=== PATIENT | female | born 1985 | race Caucasian/White ===

== ENCOUNTER 2016-10-03 09:35 | Emergency (ER) | payer OTHER ==
--- NOTE | 2016-10-03 09:53 | Emergency Department Record ---
History of Present Illness - General Chief complaint: ENT Stated complaint: SORE THROAT Time Seen by Provider: 10/03/16 09:43 Source: Patient Mode of Arrival: Ambulatory - History of Present Illness Initial comments: sore throat and body aches and a work associate also sick and she has bilateral ear pain. complaint: Sore throat Onset/Timin -: Days(s) Location: Throat Severity: Moderate Severity scale (1-10): 8 Quality: Sharp Consistency: Constant Improves with: None Worsens with: Swallowing Associated Symptoms: Pain with swallowing, Sore throat - Related Data Home Medications Medication Instructions Recorded Confirmed Last Taken Estradiol [Estradiol] 1 patch TOP DAILY 10/03/16 10/03/16 Unknown Lansoprazole [Prevacid] 30 mg PO DAILY 10/03/16 10/03/16 Unknown Lubiprostone [Amitiza] 24 mcg PO DAILY 10/03/16 10/03/16 Unknown Allergies Allergy/AdvReac Type Severity Reaction Status Date / Time ciprofloxacin [From Cipro] Allergy ANAPHYLAXIS Verified 07/22/15 12:51 ciprofloxacin HCl Allergy ANAPHYLAXIS Verified 07/22/15 12:51 [From Cipro] estradiol [From Estrace] Allergy ANAPHYLAXIS Verified 07/22/15 12:51 estrogens, conjugated Allergy ANAPHYLAXIS Verified 10/02/15 10:54 [From Premarin] Sulfa (Sulfonamide Allergy ANAPHYLAXIS Verified 10/02/15 10:55 Antibiotics) sulfamethoxazole Allergy ANAPHYLAXIS Verified 07/22/15 12:51 [From Bactrim] trimethoprim [From Bactrim] Allergy ANAPHYLAXIS Verified 07/22/15 12:51 Travel Screening - Travel/Exposure Within Last 30 Days Have you traveled within the last 30 days?: No Review of Systems Reviewed: No additional complaints except as noted below Constitutional: Reports: As per HPI. Denies: Chills, Fever, Malaise, Night sweats, Weakness, Weight change Eyes: Reports: As per HPI. Denies: Eye discharge, Eye pain, Photophobia, Vision change ENT: Reports: As per HPI, Throat pain. Denies: Congestion, Dental pain, Ear pain, Epistaxis, Hearing loss Respiratory: Reports: As per HPI. Denies: Cough, Dyspnea, Hemoptysis, Stridor, Wheezes Cardiovascular: Reports: As per HPI. Denies: Arrhythmia, Chest pain, Dyspnea on exertion, Edema, Murmurs, Orthopnea, Palpitations, Paroxysmal nocturnal dyspnea, Rheumatic Fever, Syncope Endocrine: Reports: As per HPI. Denies: Fatigue, Heat or cold intolerance, Polydipsia, Polyuria Gastrointestinal: Reports: As per HPI. Denies: Abdominal pain, Constipation, Diarrhea, Hematemesis, Hematochezia, Melena, Nausea, Vomiting Genitourinary: Reports: As per HPI. Denies: Abnormal menses, Discharge, Dyspareunia, Dysuria, Frequency, Hematuria, Incontinence, Retention, Urgency Musculoskeletal: Reports: As per HPI. Denies: Arthralgia, Back pain, Gout, Joint swelling, Myalgia, Neck pain Skin: Reports: As per HPI. Denies: Bruising, Change in color, Change in hair/ nails, Lesions, Pruritus, Rash Neurological: Reports: As per HPI. Denies: Abnormal gait, Confusion, Headache, Numbness, Paresthesias, Seizure, Tingling, Tremors, Vertigo, Weakness Psychiatric: Reports: As per HPI. Denies: Anxiety, Auditory hallucinations, Depression, Homicidal thoughts, Suicidal thoughts, Visual hallucinations Hematological/Lymphatic: Reports: As per HPI. 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: other (Hx of FELIPE.) - RESPIRATORY Hx Respiratory Disorders: Yes Hx Bronchitis: Yes Hx Pneumonia: Yes - CARDIOVASCULAR Hx Cardio Disorders: No - NEURO Hx Neuro Disorders: Yes Hx Headaches: Yes - GI Hx GI Disorders: No - Hx Genitourinary Disorders: Yes Hx Bladder Problem: Yes Hx UTI: Yes Comment:: endometriosis - ENDOCRINE Hx Endocrine Disorders: No Hx Diabetes: No Hx Thyroid Disease: No - MUSCULOSKELETAL Hx Musculoskeletal Disorders: No - PSYCH Hx Psych Problems: Yes Hx Anxiety: Yes Hx Depression: Yes - HEMATOLOGY/ONCOLOGY Hx Hematology/Oncology Disorders: No Family Medical History Any Significant Family History?: Yes Hx Cancer: Brother/Sister *Cancer Comment: Aunt Hx Depression: Brother/Sister Hx Diabetes: Grandparents Hx Heart Disease: Grandparents Physical Exam - General General Appearance: Alert, Oriented x3, Cooperative, No acute distress - Head Head exam: Normal inspection - Eye Eye exam: Normal appearance, PERRL Pupils: Normal accommodation - ENT ENT exam: Mucous membranes moist, Normal external ear exam, TM's normal bilaterally Ear exam: Normal external inspection. negative: External canal tenderness Nasal Exam: Normal inspection. negative: Discharge, Sinus tenderness Mouth exam: Normal external inspection, Tongue normal Teeth exam: Normal inspection. negative: Dental caries Throat exam: Normal inspection, Tonsillar erythema. negative: Tonsillar exudate - Neck Neck exam: Normal inspection, Full ROM. negative: Tenderness - Respiratory Respiratory exam: Normal lung sounds bilaterally. negative: Respiratory distress - Cardiovascular Cardiovascular Exam: Regular rate, Normal rhythm, Normal heart sounds - GI/Abdominal GI/Abdominal exam: Soft, Normal bowel sounds. negative: Tenderness - Rectal Rectal exam: Deferred - exam: Deferred - Extremities Extremities exam: Normal inspection, Full ROM, Normal capillary refill. negative: Tenderness - Back Back exam: Reports: Normal inspection, Full ROM. Denies: Muscle spasm, Rash noted, Tenderness - Neurological Neurological exam: Alert, Normal gait, Oriented X3, Reflexes normal - Psychiatric Psychiatric exam: Normal affect, Normal mood - Skin Skin exam: Dry, Intact, Normal color, Warm Course Vital Signs 10/03/16 09:38 Temperature 98.5 F Pulse Rate 111 H Respiratory 20 Rate Blood Pressure 130/79 Pulse Ox 98 Medical Decision Making - Data Complexity MDM Data: Labs Ordered and/or Reviewed Disposition Clinical Impression: Pharyngitis Disposition: Home, Self-Care Condition: (1) Good Instructions: Pharyngitis (ED) Additional Instructions: follow up with family in 2 days Forms: Patient Portal Access Time of Disposition: 10:07
== END 2016-10-03 10:23 | disposition home or self-care (01) ==
LOC: ER 09:35
DX: J02.9 Acute pharyngitis, unspecified (principal)
CPT/HCPCS: 87880; 99282

== ENCOUNTER 2017-04-28 05:16 | Emergency (ER) | payer OTHER ==
[2017-04-28] MEDS ORDERED: ASPIRIN 81 MG CHEWABLE TABLET PO ONE ×3 (05:24→05:42)
--- NOTE | 2017-04-28 05:32 | Emergency Department Record ---
History of Present Illness - General Chief Complaint: Chest Pain Stated Complaint: CHEST PAIN Time Seen by Provider: 04/28/17 05:24 Source: Patient - History of Present Illness Initial Comments: The patient states that she developed anterior chest heaviness about 2 hours ago 8/10 severity with radiation through to left should blade and down left arm to her fingers. It was associated with nausea, NO vomiting, some SOB, and palpitations. It is pleuritic in nature worsening with a deep breath. She took Zantac because she has acid reflux, and she also took ibuprofen earlier. She denies DM, htn, Chol elevation, smoking, or FH of heart problems at a young age. She denies PE, DVT, HI, CVA history. She was seen for a similar situation in September of 2015 and had a cardiac workup including CTA which was normal. She had a total hysterectomy at age 25 due to endometriosis. She also has a history of IBS; she had 1 week of intermittent diffuse abdominal pain which was present yesterday but currently is absent. - Related Data Allergies Allergy/AdvReac Type Severity Reaction Status Date / Time ciprofloxacin [From Cipro] Allergy ANAPHYLAXIS Verified 07/22/15 12:51 ciprofloxacin HCl Allergy ANAPHYLAXIS Verified 07/22/15 12:51 [From Cipro] estradiol [From Estrace] Allergy ANAPHYLAXIS Verified 07/22/15 12:51 estrogens, conjugated Allergy ANAPHYLAXIS Verified 10/02/15 10:54 [From Premarin] Sulfa (Sulfonamide Allergy ANAPHYLAXIS Verified 10/02/15 10:55 Antibiotics) sulfamethoxazole Allergy ANAPHYLAXIS Verified 07/22/15 12:51 [From Bactrim] trimethoprim [From Bactrim] Allergy ANAPHYLAXIS Verified 07/22/15 12:51 Review of Systems Reviewed: No additional complaints except as noted below Constitutional: Reports: As per HPI. Denies: Chills, Fever, Malaise, Night sweats, Weakness, Weight change Eyes: Reports: As per HPI. Denies: Eye discharge, Eye pain, Photophobia, Vision change ENT: Reports: As per HPI. Denies: Congestion, Dental pain, Ear pain, Epistaxis , Hearing loss, Throat pain Respiratory: Reports: As per HPI. Denies: Cough, Dyspnea, Hemoptysis, Stridor, Wheezes Cardiovascular: Reports: As per HPI. Denies: Arrhythmia, Chest pain, Dyspnea on exertion, Edema, Murmurs, Orthopnea, Palpitations, Paroxysmal nocturnal dyspnea, Rheumatic Fever, Syncope Endocrine: Reports: As per HPI. Denies: Fatigue, Heat or cold intolerance, Polydipsia, Polyuria Gastrointestinal: Reports: As per HPI. Denies: Abdominal pain, Constipation, Diarrhea, Hematemesis, Hematochezia, Melena, Nausea, Vomiting Genitourinary: Reports: As per HPI. Denies: Abnormal menses, Discharge, Dyspareunia, Dysuria, Frequency, Hematuria, Incontinence, Retention, Urgency Musculoskeletal: Reports: As per HPI. Denies: Arthralgia, Back pain, Gout, Joint swelling, Myalgia, Neck pain Skin: Reports: As per HPI. Denies: Bruising, Change in color, Change in hair/ nails, Lesions, Pruritus, Rash Neurological: Reports: As per HPI. Denies: Abnormal gait, Confusion, Headache, Numbness, Paresthesias, Seizure, Tingling, Tremors, Vertigo, Weakness Psychiatric: Reports: As per HPI. Denies: Anxiety, Auditory hallucinations, Depression, Homicidal thoughts, Suicidal thoughts, Visual hallucinations Hematological/Lymphatic: Reports: As per HPI. 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: other (Hx of FELIPE.) - RESPIRATORY Hx Respiratory Disorders: Yes Hx Bronchitis: Yes Hx Pneumonia: Yes - CARDIOVASCULAR Hx Cardio Disorders: No - NEURO Hx Neuro Disorders: Yes Hx Headaches: Yes - GI Hx GI Disorders: No - Hx Genitourinary Disorders: Yes Hx Bladder Problem: Yes Hx UTI: Yes Comment:: endometriosis - ENDOCRINE Hx Endocrine Disorders: No Hx Diabetes: No Hx Thyroid Disease: No - MUSCULOSKELETAL Hx Musculoskeletal Disorders: No - PSYCH Hx Psych Problems: Yes Hx Anxiety: Yes Hx Depression: Yes - HEMATOLOGY/ONCOLOGY Hx Hematology/Oncology Disorders: No Family Medical History Hx Cancer: Brother/Sister *Cancer Comment: Aunt Hx Depression: Brother/Sister Hx Diabetes: Grandparents Hx Heart Disease: Grandparents Physical Exam - General General Appearance: Alert, Oriented x3, Cooperative, Mild distress, Anxious ( facial grimacing when speaking of her numerous symptoms) - Head Head exam: Normal inspection - Eye Eye exam: Normal appearance, PERRL Pupils: Normal accommodation - ENT ENT exam: Normal exam, Mucous membranes moist, Normal external ear exam, Normal orophraynx, TM's normal bilaterally Ear exam: Normal external inspection. negative: External canal tenderness Nasal Exam: Normal inspection. negative: Discharge, Sinus tenderness Mouth exam: Normal external inspection, Tongue normal Teeth exam: Normal inspection. negative: Dental caries Throat exam: Normal inspection. negative: Tonsillar erythema, Tonsillar exudate - Neck Neck exam: Normal inspection, Full ROM. negative: Lymphadenopathy, Tenderness - Respiratory Respiratory exam: Normal lung sounds bilaterally. negative: Accessory muscle use, Chest wall tenderness, Respiratory distress - Cardiovascular Cardiovascular Exam: Regular rate, Normal rhythm, Normal heart sounds - GI/Abdominal GI/Abdominal exam: Soft, Normal bowel sounds. negative: Tenderness - Rectal Rectal exam: Deferred - exam: Deferred - Extremities Extremities exam: Normal inspection, Full ROM, Normal capillary refill. negative: Calf tenderness, Pedal edema, Tenderness - Back Back exam: Reports: Normal inspection, Full ROM. Denies: CVA tenderness (R), CVA tenderness (L), Muscle spasm, Rash noted, Tenderness - Neurological Neurological exam: Alert, Normal gait, Oriented X3, Reflexes normal - Psychiatric Psychiatric exam: Anxious, Normal affect, Normal mood - Skin Skin exam: Dry, Intact, Normal color, Warm Course - Reevaluation(s) Reevaluation #1: No improvement with ativan. Still hurts on left side of chest especially with breathing. She states that it feels beneath her left breast but above her ribs. Patient is aware that she is to have her troponin repeated with results to Dr. Alberto on the day shift. She is resting comfortably. Much more relaxed. Care turned over to Dr. Alberto at 7 a.m. due to shift change. 04/28/17 06:06 04/28/17 06:42 Medical Decision Making - Data Complexity MDM Data: Labs Ordered and/or Reviewed, EKG Ordered and/or Reviewed - Lab Data Result diagrams: 04/28/17 05:20 04/28/17 05:20 - EKG Data -: EKG Interpreted by Me EKG: No Acute Changes, Unchanged From Previous (no change from 5-8-16.) Disposition Clinical Impression: Left sided chest pain Condition: (2) Stable Forms: Patient Portal Access Quality - Quality Measures Quality Measures: N/A - Blood Pressure Screening Does Patient Have Any of the Following: No Blood Pressure Classification: Hypertensive Reading Systolic Measurement: 145 Diastolic Measurement: 97 Screening for High Blood Pressure: < Normal BP, F/U Not Required > [G1230]
[2017-04-28 05:34] LABS: HEMATOCRIT 40.3 % (35.0-47.0); HEMOGLOBIN 13.8 gm/dl (11.6-16.0); MEAN CELL VOLUME 87.6 fl (81-97); MEAN CORPUSCULAR HGB CONC 34.2 g/dl (32-36); MEAN PLATELET VOLUME 10.1 fl (7.4-10.4); PLATELET COUNT 290 K/uL (130-400); RED CELL DISTRIBUTION WIDTH 12.3 % (11.5-14.5); WHITE BLOOD COUNT W/O DIFF 7.4 K/uL (4.2-12.2)
[2017-04-28] MEDS ORDERED: LORAZEPAM 2 MG/ML VIAL IV ONE (05:41)
[2017-04-28 05:42] LABS: BLOOD UREA NITROGEN 23 mg/dL (6-20); CREATININE 0.7 mg/dL (0.5-0.9); EST GLOMERULAR FILTRATION RATE > 60 mL/min
[2017-04-28 05:45] LABS: GLUCOSE,RANDOM 103 mg/dL (74-109)
[2017-04-28 05:49] LABS: PARTIAL THROMBOPLASTIN TIME 26.4 SECONDS (24.5-39.1)
[2017-04-28 05:58] LABS: THYROID STIMULATING HORMONE 4.35 uIU/mL (0.270-4.20)
[2017-04-28] MEDS ORDERED: KETOROLAC 30 MG/ML VIAL IVP ONE (06:06)
[2017-04-28] MEDS ORDERED: ORPHENADRINE CITRATE 60MG/2ML VIAL IVP ONE (06:07)
[2017-04-28] MEDS ORDERED: MORPHINE SULFATE 5 MG/ML PFS IVP ONE (07:09)
--- NOTE | 2017-04-28 07:10 | Emergency Department Record ---
History of Present Illness - General Chief Complaint: Chest Pain Stated Complaint: CHEST PAIN Time Seen by Provider: 04/28/17 05:24 Source: Patient Mode of Arrival: Wheelchair - History of Present Illness Onset/Timin -: Hour(s) Onset: During rest Pain Location: Left chest Pain Radiation: LUE, Back Severity scale (1-10): 8 Quality: Sharp Consistency: Constant Improves With: Nothing Worsens With: Movement Anginal Symptoms: Diaphoresis, Nausea - Related Data Allergies Allergy/AdvReac Type Severity Reaction Status Date / Time ciprofloxacin [From Cipro] Allergy ANAPHYLAXIS Verified 07/22/15 12:51 ciprofloxacin HCl Allergy ANAPHYLAXIS Verified 07/22/15 12:51 [From Cipro] estradiol [From Estrace] Allergy ANAPHYLAXIS Verified 07/22/15 12:51 estrogens, conjugated Allergy ANAPHYLAXIS Verified 10/02/15 10:54 [From Premarin] Sulfa (Sulfonamide Allergy ANAPHYLAXIS Verified 10/02/15 10:55 Antibiotics) sulfamethoxazole Allergy ANAPHYLAXIS Verified 07/22/15 12:51 [From Bactrim] trimethoprim [From Bactrim] Allergy ANAPHYLAXIS Verified 07/22/15 12:51 Travel Screening - Travel/Exposure Within Last 30 Days Have you traveled within the last 30 days?: No - Travel Symptoms Symptom Screening: None Review of Systems Constitutional: Reports: As per HPI. Denies: Chills, Fever, Malaise, Night sweats, Weakness, Weight change Eyes: Reports: As per HPI. Denies: Eye discharge, Eye pain, Photophobia, Vision change ENT: Reports: As per HPI. Denies: Congestion, Dental pain, Ear pain, Epistaxis , Hearing loss, Throat pain Respiratory: Reports: As per HPI. Denies: Cough, Dyspnea, Hemoptysis, Stridor, Wheezes Cardiovascular: Reports: As per HPI. Denies: Arrhythmia, Chest pain, Dyspnea on exertion, Edema, Murmurs, Orthopnea, Palpitations, Paroxysmal nocturnal dyspnea, Rheumatic Fever, Syncope Endocrine: Reports: As per HPI. Denies: Fatigue, Heat or cold intolerance, Polydipsia, Polyuria Gastrointestinal: Reports: As per HPI. Denies: Abdominal pain, Constipation, Diarrhea, Hematemesis, Hematochezia, Melena, Nausea, Vomiting Genitourinary: Reports: As per HPI. Denies: Abnormal menses, Discharge, Dyspareunia, Dysuria, Frequency, Hematuria, Incontinence, Retention, Urgency Musculoskeletal: Reports: As per HPI. Denies: Arthralgia, Back pain, Gout, Joint swelling, Myalgia, Neck pain Skin: Reports: As per HPI. Denies: Bruising, Change in color, Change in hair/ nails, Lesions, Pruritus, Rash Neurological: Reports: As per HPI. Denies: Abnormal gait, Confusion, Headache, Numbness, Paresthesias, Seizure, Tingling, Tremors, Vertigo, Weakness Psychiatric: Reports: As per HPI. Denies: Anxiety, Auditory hallucinations, Depression, Homicidal thoughts, Suicidal thoughts, Visual hallucinations Hematological/Lymphatic: Reports: As per HPI. 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 (Hx of FELIPE.) - RESPIRATORY Hx Respiratory Disorders: Yes Hx Bronchitis: Yes Hx Pneumonia: Yes - CARDIOVASCULAR Hx Cardio Disorders: No - NEURO Hx Neuro Disorders: Yes Hx Headaches: Yes - GI Hx GI Disorders: No - Hx Genitourinary Disorders: Yes Hx Bladder Problem: Yes Hx UTI: Yes Comment:: endometriosis - ENDOCRINE Hx Endocrine Disorders: No Hx Diabetes: No Hx Thyroid Disease: No - MUSCULOSKELETAL Hx Musculoskeletal Disorders: No - PSYCH Hx Psych Problems: Yes Hx Anxiety: Yes Hx Depression: Yes - HEMATOLOGY/ONCOLOGY Hx Hematology/Oncology Disorders: No Family Medical History Hx Cancer: Brother/Sister *Cancer Comment: Aunt Hx Depression: Brother/Sister Hx Diabetes: Grandparents Hx Heart Disease: Grandparents Course Vital Signs 04/28/17 04/28/17 04/28/17 05:17 06:36 06:56 Temperature 97.9 F Pulse Rate 92 H Pulse Rate [ 59 L 58 L Rating Examiner ] Respiratory 18 12 20 Rate Blood Pressure 145/97 Blood Pressure 108/80 109/68 [Right Arm] Pulse Ox 100 99 98 - Reevaluation(s) Reevaluation #1: Patient is still having sharp pressure left and anterior chest . Will admit cardiac workup. Patient is requesting [facility] cardiology. 04/28/17 04/28/17 07:56 Reevaluation #2: Upon another review of EKG, T wave inversion V3, new from old EKG of 5-8-[address] Huitronr Cardiology who will consult. Jenise Castillo who is applications tester for medicine. MARQUISE Castillo who accepts patient in transfer as direct admit. Patient aware and agrees. 04/28/17 07:15 04/28/17 07:29 04/28/17 07:57 Reevaluation #3: Patient chest symptoms are improving. She is finishing her nitro trial, will be given morphine, and transferred. 04/28/17 08:01 Medical Decision Making - Management Options MDM Management: Additional Work-up Planned (e.g. ADM/Transfer/OP Study) ( Radha) - Data Complexity MDM Data: Labs Ordered and/or Reviewed, X-Ray Ordered and/or Reviewed (CXR two view: Neg. for acute abnormality.), EKG Ordered and/or Reviewed (New T inversion in V3, no ST elevation compared to prior of 10-02-15.) - Lab Data Result diagrams: 04/28/17 05:20 04/28/17 05:20 Lab Results 04/28/17 04/28/17 04/28/17 Range/Units 05:20 05:20 05:20 WBC 7.4 (4.2-12.2) K/uL RBC 4.60 (3.80-5.40) M/uL Hgb 13.8 (11.6-16.0) gm/dl Hct 40.3 (35.0-47.0) % MCV 87.6 (81-97) fl MCH 30.0 (27-33) pg MCHC 34.2 (32-36) g/dl RDW 12.3 (11.5-14.5) % Plt Count 290 (130-400) K/uL MPV 10.1 (7.4-10.4) fl Neutrophils % 31.0 L (47-80) % Eosinophils % Not Reportable Basophils % Not Reportable Lymphocytes 66.0 H (16-45) % Monocytes 3.0 (0-9) % APTT 26.40 (24.5-39.1) SECONDS D-Dimer 0.21 (0-0.59) mg/L FEU Sodium 140 (136-145) mmol/L Potassium 3.7 (3.4-4.5) mmol/L Chloride 101 (98-107) mmol/L Carbon Dioxide 26.0 (22-29) mmol/L Anion Gap 13.0 (7-16) BUN 23 H (6-20) mg/dL Creatinine 0.7 (0.5-0.9) mg/dL Estimated GFR > 60 mL/min Random Glucose 103 (74-109) mg/dL Calcium 9.9 (8.6-10.0) mg/dL Troponin T < 0.010 (0-0.010) ng/mL NT-Pro-B Natriuret Pep 33.80 (<125) pg/mL TSH 4.35 H (0.270-4.20) uIU/mL Disposition Disposition: Transfer Clinical Impression: Left sided chest pain, TSH elevation Disposition: Acute Care Hospital Transfer Transfer To: [facility] Medical Reason For Transfer: EKG changes Accepting Physician: Dr. Castillo Time Discussed w/Accepting Physician: 08:09 Condition: (2) Stable Forms: Patient Portal Access Quality - Quality Measures Quality Measures: N/A - Blood Pressure Screening Does Patient Have Any of the Following: No Blood Pressure Classification: Hypertensive Reading Systolic Measurement: 145 Diastolic Measurement: 97 Screening for High Blood Pressure: < Pre-Hypertensive BP, F/U Documented > [ G8950] Pre-Hypertensive Follow-up Interventions: Follow-up with rescreen every year.
[2017-04-28] MEDS: NITROGLYCERIN 0.4MG SL TABLET #25 BTL SL PRN ×3 (07:49→08:01)
--- NOTE | 2017-04-29 07:27 | RADIOLOGY REPORT ---
EXAM: CHEST, TWO VIEWS HISTORY: ACUTE GENERALIZED CHEST PRESSURE. TECHNIQUE: Two views of the chest were obtained. Comparison: Chest x-ray 10/01/15. FINDINGS: The lungs are clear. The cardiac silhouette, diaphragm, and osseous structures are unremarkable for age. IMPRESSION: NEGATIVE CHEST EXAMINATION. JOB NUMBER: [id number] MTDD
== END 2017-04-28 08:49 | disposition short-term general hospital (02) ==
LOC: ER 05:16
DX: R07.89 Other chest pain (principal); R94.6 Abnormal results of thyroid function studies; R42 Dizziness and giddiness; R11.0 Nausea; R06.02 Shortness of breath
CPT/HCPCS: 99285 ×2; 96374; 96375; 85730; 80048; 84443; 84484; 85379; 85027; 83880; 71020; 93005; 93010; J1885; J2060; J2270; J2360

== ENCOUNTER 2017-05-31 19:30 | Emergency (ER) | payer OTHER ==
[2017-05-31] MEDS ORDERED: ONDANSETRON HCL IV 4 MG/2 ML VIAL IVP ONE (20:41)
[2017-05-31] MEDS ORDERED: HYDROMORPHONE HCL 1 MG/ML SYRINGE IVP ONE (20:41)
[2017-05-31] MEDS ORDERED: 0.9 % SODIUM CHLORIDE 1000ML 1,000 ML IV SCH (20:45)
--- NOTE | 2017-05-31 20:46 | Emergency Department Record ---
History of Present Illness - General Chief Complaint: Abdominal Pain Stated Complaint: ABDOMINAL PAIN Time Seen by Provider: 05/31/17 20:38 Source: Patient Mode of Arrival: Ambulatory Limitations: No limitations - History of Present Illness Initial Comments: 32 yo female presents to ED for evaluation or RUQ pain symptoms that began approximately 8 hours ago. Patient reports that her pain symptoms began after eating, has been recently evaluated by her PCP and underwent HIDA scan imaging demonstrating 30% function of the gallbladder. Patient denies fevers, chills, or recent illness, but reports pain and inability to tolerate PO for the day. Patient is scheduled to see Dr. Vernon next Saturday. Patient denies previous abdominal surgeries. MD Complaint: Abdominal pain Onset/Timin -: Hour(s) Location: RUQ Radiation: Back Severity: Severe Quality: Sharp, Stabbing Consistency: Constant Improves With: Nothing Worsens With: Nothing Associated Symptoms: Denies other symptoms - Related Data LMP (females 10-50): other Home Medications Medication Instructions Recorded Confirmed Last Taken Cholecalciferol (Vitamin D3) 50,000 unit PO WEEKLY 05/31/17 05/31/17 Unknown [Vitamin D3] Pantoprazole Sodium 40 mg PO BID 05/31/17 05/31/17 Unknown Previous Rx's Medication Instructions Recorded Hydrocodone/Acetaminophen [[place] 1 each PO Q6H PRN #15 tablet 05/31/17 7.5-325 Tablet] Ondansetron [Zofran Odt] 4 mg PO Q8H PRN #20 tab.rapdis 05/31/17 Allergies Allergy/AdvReac Type Severity Reaction Status Date / Time ciprofloxacin [From Cipro] Allergy ANAPHYLAXIS Verified 07/22/15 12:51 ciprofloxacin HCl Allergy ANAPHYLAXIS Verified 07/22/15 12:51 [From Cipro] estradiol [From Estrace] Allergy ANAPHYLAXIS Verified 07/22/15 12:51 estrogens, conjugated Allergy ANAPHYLAXIS Verified 10/02/15 10:54 [From Premarin] ketorolac [From Toradol] Allergy hallucinati Verified 05/31/17 20:25 ons Sulfa (Sulfonamide Allergy ANAPHYLAXIS Verified 10/02/15 10:55 Antibiotics) sulfamethoxazole Allergy ANAPHYLAXIS Verified 07/22/15 12:51 [From Bactrim] trimethoprim [From Bactrim] Allergy ANAPHYLAXIS Verified 07/22/15 12:51 Travel Screening - Travel/Exposure Within Last 30 Days Have you traveled within the last 30 days?: No - Travel/Exposure Within Last Year Have you traveled outside the [place] in the last year?: No - Additonal Travel Details Have you been exposed to anyone with a communicable illness?: No - Travel Symptoms Symptom Screening: None Review of Systems Constitutional: Denies: Chills, Fever, Malaise, Night sweats Eyes: Denies: Eye discharge, Eye pain ENT: Denies: Congestion, Ear pain, Epistaxis Respiratory: Denies: Cough, Dyspnea Cardiovascular: Denies: Chest pain, Dyspnea on exertion Endocrine: Denies: Fatigue, Heat or cold intolerance Gastrointestinal: Reports: Abdominal pain, Nausea. 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.) - RESPIRATORY Hx Respiratory Disorders: Yes Hx Bronchitis: Yes Hx Pneumonia: Yes - CARDIOVASCULAR Hx Cardio Disorders: No Hx Heart Attack: Yes (09/2015) Comment:: stress test - NEURO Hx Neuro Disorders: Yes Hx Headaches: Yes - GI Hx GI Disorders: No Hx Reflux: Yes - Hx Genitourinary Disorders: Yes Hx Bladder Problem: Yes Hx UTI: Yes Comment:: endometriosis - ENDOCRINE Hx Endocrine Disorders: No Hx Diabetes: No Hx Thyroid Disease: No - MUSCULOSKELETAL Hx Musculoskeletal Disorders: No - PSYCH Hx Psych Problems: Yes Hx Anxiety: Yes Hx Depression: Yes - HEMATOLOGY/ONCOLOGY Hx Hematology/Oncology Disorders: No Family Medical History Any Significant Family History?: Yes Hx Cancer: Brother/Sister *Cancer Comment: Aunt Hx Depression: Brother/Sister Hx Diabetes: Grandparents Hx Heart Disease: Grandparents Physical Exam - General General Appearance: Alert, Oriented x3, Cooperative, Moderate distress Limitations: No limitations - Head Head exam: Atraumatic, Normocephalic, Normal inspection Head exam detail: negative: Abrasion, Contusion, Chambers's sign, General tenderness, Hematoma, Laceration - Eye Eye exam: Normal appearance. negative: Conjunctival injection, Periorbital swelling, Periorbital tenderness, Scleral icterus - ENT Ear exam: negative: Auricular hematoma, Auricular trauma Nasal Exam: negative: Active bleeding, Discharge, Dried blood, Foreign body Mouth exam: negative: Drooling, Laceration, Muffled voice, Tongue elevation - Neck Neck exam: Normal inspection. negative: Meningismus, Tenderness - Respiratory Respiratory exam: Normal lung sounds bilaterally. negative: Rales, Respiratory distress, Rhonchi, Stridor - Cardiovascular Cardiovascular Exam: Regular rate, Normal rhythm, Normal heart sounds - GI/Abdominal GI/Abdominal exam: Soft, Tenderness (TTP RUQ, no rebound, guarding is present on examination.). negative: Rebound, Rigid - Rectal Rectal exam: Deferred - exam: Deferred - Extremities Extremities exam: Normal inspection. negative: Calf tenderness, Pedal edema, Tenderness - Back Back exam: Reports: Normal inspection. Denies: CVA tenderness (R), CVA tenderness (L) - Neurological Neurological exam: Alert, Normal gait, Oriented X3 - Psychiatric Psychiatric exam: Normal affect, Normal mood - Skin Skin exam: Normal color. negative: Abrasion Type of lesion: negative: abrasion Course Vital Signs 05/31/17 20:19 Temperature 99.1 F Pulse Rate 71 Respiratory 20 Rate Blood Pressure 138/85 Pulse Ox 100 - Reevaluation(s) Reevaluation #1: 05/31/17 21:35 Labs reviewed and are grossly unremarkable for an acute process. Patient reassessed, reports that her pain symptoms are improved, will discuss disposition with Dr. Vernon. 06/01/17 00:21 Reevaluation #2: 05/31/17 21:45 Case was discussed with Dr. Vernon, will see the patient Saturday morning in the [facility] for further evaluation. Patient agrees with the plan as discussed. Medical Decision Making - Lab Data Result diagrams: 05/31/17 20:50 05/31/17 20:50 Disposition Disposition: Discharge Clinical Impression: Biliary colic Disposition: Home, Self-Care Condition: (2) Stable Instructions: Biliary Colic (ED) Additional Instructions: Return to ED if your symptoms worsen or if you have any concerns. Follow-up with Dr. Vernon in the [facility]. Sheila and Kiki as directed. Prescriptions: Hydrocodone/Acetaminophen [[place] 7.5-325 Tablet] 1 each PO Q6H PRN #15 tablet PRN Reason: Pain - Moderate (5-7) Ondansetron [Zofran Odt] 4 mg PO Q8H PRN #20 tab.rapdis PRN Reason: Nausea/Vomiting Referrals: Valentín Vernon [DOCTOR OF OSTEOPATH] - [facility] [Provider Group] Forms: Patient Portal Access Time of Disposition: 21:44 Quality - Quality Measures Quality Measures: N/A - Blood Pressure Screening Does Patient Have Any of the Following: No Blood Pressure Classification: Pre-Hypertensive BP Reading Systolic Measurement: 138 Diastolic Measurement: 85 Screening for High Blood Pressure: < Pre-Hypertensive BP, F/U Documented > [ G8950] Pre-Hypertensive Follow-up Interventions: Referral to alternative/primary care provider.
[2017-05-31 20:59] LABS: BASO % 0.1 % (0-6); EOS % 0.4 % (0-6); GRAN % 47.3 % (47-80); HEMATOCRIT 37.2 % (35.0-47.0); HEMOGLOBIN 12.4 gm/dl (11.6-16.0); LYMPH % 45.6 % (16-45); MEAN CELL VOLUME 87.3 fl (81-97); MEAN CORPUSCULAR HEMOGLOBIN 29.1 pg (27-33); MEAN CORPUSCULAR HGB CONC 33.3 g/dl (32-36); MEAN PLATELET VOLUME 9.8 fl (7.4-10.4); MONO % 6.6 % (0-9); PLATELET COUNT 257 K/uL (130-400); RED BLOOD COUNT 4.26 M/uL (3.80-5.40); RED CELL DISTRIBUTION WIDTH 12.1 % (11.5-14.5)
[2017-05-31 21:12] LABS: BLOOD UREA NITROGEN 19 mg/dL (6-20)
[2017-05-31 21:13] LABS: CREATININE 0.7 mg/dL (0.5-0.9); EST GLOMERULAR FILTRATION RATE > 60 mL/min
[2017-05-31 21:15] LABS: GLUCOSE,RANDOM 95 mg/dL (74-109)
[2017-05-31 21:18] LABS: ALB/GLOB RATIO 1.4 (1.1-1.8); ALBUMIN 4.7 g/dL (4.0-5.0); ALKALINE PHOSPHATASE 70 U/L (35-104); ALT/SGPT 15 U/L (<33); AST/SGOT 18 U/L (10.0-35.0); LIPASE 19 U/L (13-60)
[2017-05-31] MEDS ORDERED: HYDROCODONE/APAP 5/325MG TABLET PO ONE (22:25)
== END 2017-05-31 22:31 | disposition home or self-care (01) ==
LOC: ER 19:30
DX: K80.50 Calculus of bile duct without cholangitis or cholecystitis without obstruction (principal); R10.11 Right upper quadrant pain
CPT/HCPCS: 99284 ×2; 96374; 96375; 83690; 85025; 80053; J2405; J1170; J7030

== ENCOUNTER 2017-06-02 13:40 | Observation (INO) | payer OTHER ==
[2017-06-02] MEDS ORDERED: 0.9 % SODIUM CHLORIDE 1,000 ML BAG IV ONE (13:44)
[2017-06-02] MEDS ORDERED: ONDANSETRON HCL IV 4 MG/2 ML VIAL IV ONE (13:44)
[2017-06-02] MEDS ORDERED: HYDROMORPHONE HCL 1 MG/ML SYRINGE IVP ONE (13:48)
--- NOTE | 2017-06-02 13:56 | Emergency Department Record ---
History of Present Illness - General Chief complaint: Nausea, Vomiting, Diarrhea Stated complaint: NAUSEA,MIGRAINE,PAIN GALL BLADDER,CANT EAT Time Seen by Provider: 06/02/17 13:43 Source: Patient, Family Mode of Arrival: Ambulatory Limitations: No limitations - History of Present Illness Initial comments: 32 yo female presents with RUQ pain, nausea and vomiting since Saturday. She has been diagnosed with biliary dyskinesia with and abnormal HIDA scan that was performed at [facility]. She has a 7:30am appointment with Dr Vernon tomorrow. She has pain and nausea with even basic foods such as applesauce and water. No fever. She had an US earlier in April at [facility]. MD complaint: Abdominal pain, Nausea, Vomiting -: Days(s) (3) Description of Vomiting: Watery Location: RUQ Radiation: RUQ Severity: Moderate Quality: Aching Consistency: Constant Improves with: None Worsens with: Eating Associated Symptoms: Loss of appetite, Nausea/vomiting - Related Data Previous Rx's Medication Instructions Recorded Hydrocodone/Acetaminophen [[place] 1 each PO Q6H PRN #15 tablet 05/31/17 7.5-325 Tablet] Ondansetron [Zofran Odt] 4 mg PO Q8H PRN #20 tab.rapdis 05/31/17 Allergies Allergy/AdvReac Type Severity Reaction Status Date / Time ciprofloxacin [From Cipro] Allergy ANAPHYLAXIS Verified 06/02/17 13:48 ciprofloxacin HCl Allergy ANAPHYLAXIS Verified 06/02/17 13:48 [From Cipro] estradiol [From Estrace] Allergy ANAPHYLAXIS Verified 06/02/17 13:48 estrogens, conjugated Allergy ANAPHYLAXIS Verified 06/02/17 13:48 [From Premarin] ketorolac [From Toradol] Allergy hallucinati Verified 06/02/17 13:48 ons Sulfa (Sulfonamide Allergy ANAPHYLAXIS Verified 06/02/17 13:48 Antibiotics) sulfamethoxazole Allergy ANAPHYLAXIS Verified 06/02/17 13:48 [From Bactrim] trimethoprim [From Bactrim] Allergy ANAPHYLAXIS Verified 06/02/17 13:48 Review of Systems Constitutional: Denies: Chills, Fever, Malaise, Weakness Eyes: Denies: Eye discharge ENT: Denies: Congestion, Throat pain Respiratory: Denies: Cough, Dyspnea, Hemoptysis, Stridor, Wheezes Cardiovascular: Denies: Chest pain, Palpitations, Syncope Endocrine: Denies: Fatigue, Polydipsia, Polyuria Gastrointestinal: Reports: Abdominal pain, Nausea, Vomiting Genitourinary: Denies: Dysuria, Urgency Musculoskeletal: Denies: Arthralgia, Back pain, Myalgia Skin: Denies: Bruising, Change in color, Rash Neurological: Denies: Confusion, Headache, Numbness, Weakness Psychiatric: Denies: Anxiety, Visual hallucinations Hematological/Lymphatic: Denies: Blood Clots, Easy bruising, Swollen glands Past Medical History - SOCIAL HISTORY Smoking Status: Never smoker Drug Use: None - 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: 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 (Hx of FELIPE.) - RESPIRATORY Hx Respiratory Disorders: Yes Hx Bronchitis: Yes Hx Pneumonia: Yes - CARDIOVASCULAR Hx Cardio Disorders: No Hx Heart Attack: Yes (09/2015) Comment:: stress test - NEURO Hx Neuro Disorders: Yes Hx Headaches: Yes - GI Hx GI Disorders: No Hx Reflux: Yes - Hx Genitourinary Disorders: Yes Hx Bladder Problem: Yes Hx UTI: Yes Comment:: endometriosis - ENDOCRINE Hx Endocrine Disorders: No Hx Diabetes: No Hx Thyroid Disease: No - MUSCULOSKELETAL Hx Musculoskeletal Disorders: No - PSYCH Hx Psych Problems: Yes Hx Anxiety: Yes Hx Depression: Yes - HEMATOLOGY/ONCOLOGY Hx Hematology/Oncology Disorders: No Family Medical History Hx Cancer: Brother/Sister *Cancer Comment: Aunt Hx Depression: Brother/Sister Hx Diabetes: Grandparents Hx Heart Disease: Grandparents Physical Exam - General General Appearance: Alert, Oriented x3, Cooperative, No acute distress Limitations: No limitations - Head Head exam: Atraumatic, Normocephalic, Normal inspection - Eye Eye exam: Normal appearance. negative: Conjunctival injection, Scleral icterus - ENT ENT exam: Normal exam, Mucous membranes moist Ear exam: Normal external inspection Nasal Exam: Normal inspection Mouth exam: Normal external inspection Throat exam: Normal inspection. negative: Tonsillar erythema, Tonsillar exudate - Neck Neck exam: Normal inspection, Full ROM. negative: Lymphadenopathy, Tenderness - Respiratory Respiratory exam: Normal lung sounds bilaterally. negative: Respiratory distress - Cardiovascular Cardiovascular Exam: Regular rate, Normal rhythm, Normal heart sounds - GI/Abdominal GI/Abdominal exam: Soft, Guarding (RUQ) - Rectal Rectal exam: Deferred - exam: Deferred - Extremities Extremities exam: Normal inspection, Full ROM, Normal capillary refill. negative: Tenderness - Back Back exam: Reports: Normal inspection, Full ROM. Denies: Muscle spasm, Rash noted, Tenderness - Neurological Neurological exam: Alert, Normal gait, Oriented X3 - Psychiatric Psychiatric exam: Normal affect, Normal mood - Skin Skin exam: Dry, Intact, Normal color, Warm Course - Reevaluation(s) Reevaluation #1: 06/02/17 14:42 The labs were reviewed No acute changes on the labs including the CBC, CMP and Lipase The UA is positive for ketones. HCG 06/02/17 15:07 The patient reports no improvement in pain or nausea I SW Dr Vernon. We discussed admission for GI and Surgery consult tomorrow to possibly RO gastric cause prior to considering surgery. Medical Decision Making - Lab Data Result diagrams: 06/02/17 14:04 06/02/17 14:04 Disposition Disposition: Admit Clinical Impression: Biliary colic Abdominal pain Qualifiers: Abdominal location: unspecified location Qualified Code(s): R10.9 - Unspecified abdominal pain Disposition: Still a Patient at [facility] Decision to Admit: Admit from ER Decision to Admit Date: 06/02/17 Decision to Admit Time: 15:12 Condition: (1) Good Forms: Patient Portal Access Time of Disposition: 15:12 Quality - Quality Measures Quality Measures: N/A - Blood Pressure Screening Does Patient Have Any of the Following: No Systolic Measurement: ~ Screening for High Blood Pressure: < Pre-Hypertensive BP, F/U Documented > [ G8950] Pre-Hypertensive Follow-up Interventions: Referral to alternative/primary care provider.
[2017-06-02 14:13] LABS: BASO % 0.1 % (0-6); EOS % 0.4 % (0-6); GRAN % 65.6 % (47-80); HEMOGLOBIN 13.5 gm/dl (11.6-16.0); MEAN CELL VOLUME 87.3 fl (81-97); MEAN CORPUSCULAR HEMOGLOBIN 29.5 pg (27-33); MEAN CORPUSCULAR HGB CONC 33.8 g/dl (32-36); MEAN PLATELET VOLUME 9.5 fl (7.4-10.4); MONO % 5.9 % (0-9); PLATELET COUNT 268 K/uL (130-400); RED BLOOD COUNT 4.58 M/uL (3.80-5.40); RED CELL DISTRIBUTION WIDTH 12.2 % (11.5-14.5); WHITE BLOOD COUNT W/O DIFF 7.4 K/uL (4.2-12.2)
[2017-06-02 14:16] LABS: URINE APPEARANCE CLEAR; URINE BILIRUBIN NEGATIVE (NEGATIVE); URINE BLOOD NEGATIVE (NEGATIVE); URINE COLOR YELLOW; URINE GLUCOSE (UA) NEGATIVE (NEGATIVE); URINE KETONE 15 mg/dL (NEGATIVE); URINE LEUKOCYTE ESTERASE NEGATIVE (NEGATIVE); URINE NITRITE NEGATIVE (NEGATIVE); URINE PROTEIN TRACE (NEGATIVE); URINE UROBILINOGEN 0.2 E.U./dL (0.20 - 1.00)
[2017-06-02 14:17] LABS: HCG,QUALITATIVE URINE NEGATIVE (NEGATIVE)
[2017-06-02 14:26] LABS: BLOOD UREA NITROGEN 10 mg/dL (6-20); CREATININE 0.8 mg/dL (0.5-0.9); EST GLOMERULAR FILTRATION RATE > 60 mL/min; TOTAL PROTEIN 8.7 g/dL (6.6-8.7)
[2017-06-02 14:28] LABS: GLUCOSE,RANDOM 100 mg/dL (74-109)
[2017-06-02 14:31] LABS: ALB/GLOB RATIO 1.4 (1.1-1.8); ALBUMIN 5.1 g/dL (4.0-5.0); ALKALINE PHOSPHATASE 75 U/L (35-104); ALT/SGPT 16 U/L (<33); AST/SGOT 16 U/L (10.0-35.0); LIPASE 20 U/L (13-60)
[2017-06-02] MEDS ORDERED: HYDROMORPHONE HCL 1 MG/ML SYRINGE IVP PRN (15:38)
[2017-06-02] MEDS ORDERED: 0.9 % SODIUM CHLORIDE 1000ML 1,000 ML IV PRN (15:38)
[2017-06-02] MEDS ORDERED: ONDANSETRON HCL IV 4 MG/2 ML VIAL IVP PRN (15:38)
[2017-06-02] MEDS ORDERED: IBUPROFEN 600 MG TABLET PO PRN (17:26)
[2017-06-03 06:57] LABS: HEMATOCRIT 34.3 % (35.0-47.0); HEMOGLOBIN 11.3 gm/dl (11.6-16.0); MEAN CELL VOLUME 88.9 fl (81-97); MEAN CORPUSCULAR HGB CONC 32.9 g/dl (32-36); PLATELET COUNT 227 K/uL (130-400); RED BLOOD COUNT 3.86 M/uL (3.80-5.40); RED CELL DISTRIBUTION WIDTH 11.9 % (11.5-14.5); WHITE BLOOD COUNT W/O DIFF 5.8 K/uL (4.2-12.2)
[2017-06-03 07:02] LABS: MEAN CORPUSCULAR HEMOGLOBIN 29.2 pg (27-33)
[2017-06-03 07:08] LABS: ALB/GLOB RATIO 1.4 (1.1-1.8); ALBUMIN 3.8 g/dL (4.0-5.0); ALKALINE PHOSPHATASE 56 U/L (35-104); ALT/SGPT 10 U/L (<33); AST/SGOT 11 U/L (10.0-35.0); BLOOD UREA NITROGEN 9 mg/dL (6-20); CREATININE 0.6 mg/dL (0.5-0.9); EST GLOMERULAR FILTRATION RATE > 60 mL/min; GLUCOSE,RANDOM 88 mg/dL (74-109); LIPASE 23 U/L (13-60); TOTAL PROTEIN 6.6 g/dL (6.6-8.7)
[2017-06-03 07:25] LABS: PLATELET ESTIMATE NORMAL (NORMAL)
[2017-06-03] MEDS: PANTOPRAZOLE SODIUM IV 40 MG VIAL IV SCH ×2 (08:07→11:35)
--- NOTE | 2017-06-03 11:14 | History & Physical ---
History of Present Illness - Date of Service Date of Service for History & Physical: 06/03/17 - History of Present Illness Admitting Diagnosis: Intractable nausea and RUQ pain History of Present Illness: 32yo female with CC of nausea and RUQ pain. She has history of depression, FELIPE 2 /2 endometriosis. She presented to ED with complaints of nausea, vomiting and right upper quadrant pain since Saturday. She had previously been diagnosed with biliary dyskinesia with and abnormal HIDA scan (ef 30%) that was performed at [facility]. abdominal US had also been completed at [facility] in April and was unremarkable. She was having pain and nausea with even basic foods such as applesauce and water. While in the ED, patient had CBC and CMP that were unremarkable. Calcium was slightly elevated at 10.4. She was given IV antiemetics and fluids and her symptoms improved. Dr. Alberto spoke with patient's surgeon, Dr. Vernon, who actually had an appointment with her the next day. Dr. Vernon recommended admission and consult with GI for EGD to eval for possible gastric causes of her pain since she was having symptoms even with non-fatty foods. Patient was admitted for observation. 06/03/17- Patient states she is doing ok today. Says she has tolerated clear liquids last night prior to being made npo for her scope this morning. She did have some solid food after her scope and says about 20 minutes later began having that same RUQ sharp, cramping pain along with becoming nauseous. She has not vomited and is not having loose stools. Dr. Sepulveda performed EGD this morning and there was no evidence of gastritis, ulcer or other process. surgeon: Dr. Vernon Travel Screening - Travel/Exposure Within Last 30 Days Have you traveled within the last 30 days?: No - Travel/Exposure Within Last Year Have you traveled outside the [place] in the last year?: No - Additonal Travel Details Have you been exposed to anyone with a communicable illness?: No - Travel Symptoms Symptom Screening: None Review of Systems Constitutional: Denies: Chills, Fever, Malaise, Weakness Eyes: Denies: Eye discharge ENT: Denies: Congestion, Throat pain Respiratory: Denies: Cough, Dyspnea, Hemoptysis, Stridor, Wheezes Cardiovascular: Denies: Chest pain, Palpitations, Syncope Endocrine: Denies: Fatigue, Polydipsia, Polyuria Gastrointestinal: Reports: Abdominal pain, Nausea, Vomiting Genitourinary: Denies: Dysuria, Urgency Musculoskeletal: Denies: Arthralgia, Back pain, Myalgia Skin: Denies: Bruising, Change in color, Rash Neurological: Denies: Confusion, Headache, Numbness, Weakness Psychiatric: Denies: Anxiety, Visual hallucinations Hematological/Lymphatic: Denies: Blood Clots, Easy bruising, Swollen glands Past Medical History - SOCIAL HISTORY Smoking Status: Never smoker Alcohol Use: Occasional Drug Use: None - 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.) - RESPIRATORY Hx Respiratory Disorders: Yes Hx Bronchitis: Yes Hx Pneumonia: Yes - CARDIOVASCULAR Hx Cardio Disorders: No Hx Heart Attack: Yes (09/2015) Comment:: stress test - NEURO Hx Neuro Disorders: Yes Hx Headaches: Yes - GI Hx GI Disorders: No Hx Reflux: Yes - Hx Genitourinary Disorders: Yes Hx Bladder Problem: Yes Hx UTI: Yes Comment:: endometriosis - ENDOCRINE Hx Endocrine Disorders: No Hx Diabetes: No Hx Thyroid Disease: No - MUSCULOSKELETAL Hx Musculoskeletal Disorders: No - PSYCH Hx Psych Problems: Yes Hx Anxiety: Yes Hx Depression: Yes - HEMATOLOGY/ONCOLOGY Hx Hematology/Oncology Disorders: No Family Medical History Any Significant Family History?: Yes Hx Cancer: Brother/Sister *Cancer Comment: Aunt cervical Hx Depression: Brother/Sister Hx Diabetes: Grandparents Hx Heart Disease: Mother, Grandparents H&P Meds/Allergies - Allergies Allergies: Allergies Allergy/AdvReac Type Severity Reaction Status Date / Time ciprofloxacin [From Cipro] Allergy ANAPHYLAXIS Verified 06/02/17 13:48 ciprofloxacin HCl Allergy ANAPHYLAXIS Verified 06/02/17 13:48 [From Cipro] estradiol [From Estrace] Allergy ANAPHYLAXIS Verified 06/02/17 13:48 estrogens, conjugated Allergy ANAPHYLAXIS Verified 06/02/17 13:48 [From Premarin] ketorolac [From Toradol] Allergy hallucinati Verified 06/02/17 13:48 ons Sulfa (Sulfonamide Allergy ANAPHYLAXIS Verified 06/02/17 13:48 Antibiotics) sulfamethoxazole Allergy ANAPHYLAXIS Verified 06/02/17 13:48 [From Bactrim] trimethoprim [From Bactrim] Allergy ANAPHYLAXIS Verified 06/02/17 13:48 - Home Medications Previous Rx's Medication Instructions Recorded Hydrocodone/Acetaminophen [[place] 1 each PO Q6H PRN #15 tablet 05/31/17 7.5-325 Tablet] Ondansetron [Zofran Odt] 4 mg PO Q8H PRN #20 tab.rapdis 05/31/17 - Active Medications Active Medications: Current Medications Hydromorphone HCl (Dilaudid) 0.5 mg IVP Q4HR PRN PRN Reason: Abdominal Pain Sodium Chloride () 1,000 mls @ 125 mls/hr IV .Q8H PRN PRN Reason: LARGE VOLUME IV Last Admin: 06/02/17 17:31 Dose: 125 mls/hr Ibuprofen (Motrin 600mg) 600 mg PO Q6H PRN PRN Reason: headache Last Admin: 06/02/17 17:30 Dose: 600 mg Ondansetron HCl (Zofran) 4 mg IVP Q4H PRN PRN Reason: NAUSEA Pantoprazole Sodium (Protonix Iv) 40 mg IV DAILY MESFIN Last Admin: 06/03/17 08:07 Dose: 40 mg Physical Exam - Vital Signs Vital Signs: Vital Signs - Last 24 Hrs Temp Pulse Pulse Resp BP BP Pulse Ox 06/03/17 08:14 57 L 18 06/03/17 07:00 97.3 F L 57 L 18 109/69 97 06/02/17 23:38 97.6 F 54 L 18 102/50 98 06/02/17 21:00 16 06/02/17 15:55 98.5 F 72 98 H 18 114/72 118/76 98 - General General Appearance: Alert, Oriented x3, Cooperative, No acute distress Limitations: No limitations - Head Head exam: Atraumatic, Normocephalic, Normal inspection - Eye Eye exam: Normal appearance. negative: Conjunctival injection, Scleral icterus - ENT ENT exam: Normal exam, Mucous membranes moist Ear exam: Normal external inspection Nasal Exam: Normal inspection Mouth exam: Normal external inspection Throat exam: Normal inspection. negative: Tonsillar erythema, Tonsillar exudate - Neck Neck exam: Normal inspection, Full ROM. negative: Lymphadenopathy, Tenderness - Respiratory Respiratory exam: Normal lung sounds bilaterally. negative: Respiratory distress - Cardiovascular Cardiovascular Exam: Regular rate, Normal rhythm, Normal heart sounds - GI/Abdominal GI/Abdominal exam: Soft (belly remains soft), Normal bowel sounds, Tenderness ( RUQ) - Rectal Rectal exam: Deferred - exam: Deferred - Extremities Extremities exam: Normal inspection, Full ROM, Normal capillary refill. negative: Tenderness - Back Back exam: Reports: Normal inspection, Full ROM. Denies: Muscle spasm, Rash noted, Tenderness - Neurological Neurological exam: Alert, Normal gait, Oriented X3 - Psychiatric Psychiatric exam: Normal affect, Normal mood - Skin Skin exam: Dry, Intact, Normal color, Warm Results - Labs Result Diagrams: 06/03/17 06:20 06/03/17 06:20 Labs Last 24 Hours: Laboratory Results - last 24 hr 06/03/17 06/03/17 06:20 06:20 WBC 5.8 RBC 3.86 Hgb 11.3 L Hct 34.3 L MCV 88.9 MCH 29.2 MCHC 32.9 RDW 11.9 Plt Count 227 MPV 10.0 Neutrophils % 46.0 L Eosinophils % Not Reportable Basophils % Not Reportable Lymphocytes 47.0 H Monocytes 6.0 Platelet Estimate Normal RBC Morphology Normal Eosinophil Count 1.0 Sodium 144 Potassium 4.0 Chloride 107 Carbon Dioxide 26.0 Anion Gap 11.0 BUN 9 Creatinine 0.6 Estimated GFR > 60 Random Glucose 88 Calcium 9.2 Total Bilirubin 0.30 AST 11 ALT 10 Alkaline Phosphatase 56 Total Protein 6.6 Albumin 3.8 L Globulin 2.8 Albumin/Globulin Ratio 1.4 Lipase 23 VTE H&P Assessment - Risk for VTE Risk for VTE: No Risk Level: Low Risk Assessment Date: 06/03/17 Risk Assessment Time: 17:28 VTE Orders Placed or Will Be Placed: No VTE Reason for No Prophylaxis: Not Indicated Plan - Detailed Diagnosis and Plan (1) Biliary colic Status: Acute Base Code: K80.50 - CALCULUS OF BILE DUCT W/O CHOLANGITIS OR CHOLECYST W/O OBST Comment: 06/03/17- Stable. Patient had U/S and HIDA scan with 30% ejection fraction. She underwent EGD today which was unremarkable. CMP and CBC have been unremarkable as well. She is tolerating clear liquids currently and says the zofran seems to be helping with her nausea. Dr. Vernon has counseled patient on risks/benefits of cholecystectomy and patient is scheduled to have that done tomorrow as outpatient at [facility]. -will plan to discharge home as she is tolerating clear liquids and pain is controlled -She may continue zofran 4mg odt q6H prn nausea and she already has a script for this -follow up tomorrow at [facility] as scheduled for cholecystectomy with Dr. Vernon. Patient agreed with this plan (2) DVT prophylaxis Status: Acute Base Code: [id number] - Comment: 06/03/17- patient is very low risk. Will encourage ambulation as tolerating (3) Full code status Status: Acute Base Code: Z78.9 - OTHER SPECIFIED HEALTH STATUS Comment: 06/03- patient is full code
--- NOTE | 2017-06-03 14:40 | Medical Records Consult ---
DATE OF CONSULTATION: 06/03/2017 REASON FOR CONSULTATION: Abdominal pain. HISTORY OF PRESENT ILLNESS: The patient is a 32-year-old female who has been having some ongoing right subcostal postprandial pain. She states that this has been going on for months. She did have a lot of her workup done at [facility]. This is in the form of an ultrasound. Ultrasound did not reveal any evidence of cholecystitis or cholelithiasis. Followup HIDA scan did reveal an ejection fraction of 30% but patient had extreme pain with the Kinevac injection. She states that she has also had a history of GERD but this feels completely different. She has pain with all types of foods. She has pain and discomfort with even water. She has never had an upper endoscopy. She has been in the hospital in the ER on 3 separate occasions and was finally admitted last night. PAST MEDICAL HISTORY: Significant for endometriosis, GERD. PAST SURGICAL HISTORY: Hysterectomy, laparoscopy, appendectomy. CURRENT MEDICATIONS: 1. [place]. 2. Zofran. ALLERGIES: CIPRO, ESTRACE, ESTROGENS, TORADOL, SULFA, BACTRIM. SOCIAL HISTORY: She denies any tobacco or alcohol usage. PHYSICAL EXAMINATION: VITAL SIGNS: Stable. She is afebrile. LUNGS: Decreased. ABDOMEN: Soft, mildly obese. There are multiple well-healed port site scars noted. There is tenderness to the right upper quadrant on palpation. She has a supraumbilical belly button piercing. EXTREMITIES: No trace of edema. RADIOGRAPHIC DATA: I did review all her imaging studies. IMPRESSION AND PLAN: Abdominal pain of unknown clear etiology. This could be multifactorial with reflux. This could be partly due to reflux, partly due to irritable bowel, partly due to biliary dyskinesia. She is going to undergo an upper endoscopy today. If this is normal, we did discuss cholecystectomy. Risks include but are not limited to bleeding, infection, acute or chronic pain, injury to common bile duct, nonresolution of her symptoms. She understands this fully. I will follow up later today after a scope with further recommendations. Thank you for this referral. JONA
--- NOTE | 2017-06-03 14:51 | Discharge Summary ---
Providers Discharge Summary Date: 06/03/17 Date of admission: 06/02/17 15:34 Expected Date of Discharge: 06/03/17 Attending physician: Hao Traore Primary care physician: DOMINGO COLEMAN D.O. Physical Exam - Vital Signs Vital Signs: Vital Signs - Last 24 Hrs Temp Pulse Pulse Resp BP BP Pulse Ox 06/03/17 14:29 98.2 F 62 18 106/61 97 06/03/17 12:34 97.9 F 63 18 137/73 100 06/03/17 08:14 57 L 18 06/03/17 07:00 97.3 F L 57 L 18 109/69 97 06/02/17 23:38 97.6 F 54 L 18 102/50 98 06/02/17 21:00 16 06/02/17 15:55 98.5 F 72 98 H 18 114/72 118/76 98 - General General Appearance: Alert, Oriented x3, Cooperative, No acute distress Limitations: No limitations - Head Head exam: Atraumatic, Normocephalic, Normal inspection - Eye Eye exam: Normal appearance. negative: Conjunctival injection, Scleral icterus - ENT ENT exam: Normal exam, Mucous membranes moist Ear exam: Normal external inspection Nasal Exam: Normal inspection Mouth exam: Normal external inspection Throat exam: Normal inspection. negative: Tonsillar erythema, Tonsillar exudate - Neck Neck exam: Normal inspection, Full ROM. negative: Lymphadenopathy, Tenderness - Respiratory Respiratory exam: Normal lung sounds bilaterally. negative: Respiratory distress - Cardiovascular Cardiovascular Exam: Regular rate, Normal rhythm, Normal heart sounds - GI/Abdominal GI/Abdominal exam: Soft, Guarding (RUQ) - Rectal Rectal exam: Deferred - exam: Deferred - Extremities Extremities exam: Normal inspection, Full ROM, Normal capillary refill. negative: Tenderness - Back Back exam: Reports: Normal inspection, Full ROM. Denies: Muscle spasm, Rash noted, Tenderness - Neurological Neurological exam: Alert, Normal gait, Oriented X3 - Psychiatric Psychiatric exam: Normal affect, Normal mood - Skin Skin exam: Dry, Intact, Normal color, Warm Hospitalization - Hospitalization Admission Diagnosis: Intractable nausea and RUQ pain - Problem List/Discharge Diagnosis (1) Biliary colic Status: Acute Base Code: K80.50 - CALCULUS OF BILE DUCT W/O CHOLANGITIS OR CHOLECYST W/O OBST Comment: 06/03/17- Stable. Patient had U/S and HIDA scan with 30% ejection fraction. She underwent EGD today which was unremarkable. CMP and CBC have been unremarkable as well. She is tolerating clear liquids currently and says the zofran seems to be helping with her nausea. Dr. Vernon has counseled patient on risks/benefits of cholecystectomy and patient is scheduled to have that done tomorrow as outpatient at [facility]. -will plan to discharge home as she is tolerating clear liquids and pain is controlled -She may continue zofran 4mg odt q6H prn nausea and she already has a script for this -follow up tomorrow at [facility] as scheduled for cholecystectomy with Dr. Vernon. Patient agreed with this plan (2) DVT prophylaxis Status: Acute Base Code: LQL4115 - Comment: 06/03/17- patient is very low risk. Will encourage ambulation as tolerating (3) Full code status Status: Acute Base Code: Z78.9 - OTHER SPECIFIED HEALTH STATUS Comment: 06/03- patient is full code - Hospitalization Course Disposition: Home, Self-Care Hospital Course: 32yo female with CC of nausea and RUQ pain. She has history of depression, FELIPE 2 /2 endometriosis. She presented to ED with complaints of nausea, vomiting and right upper quadrant pain since Saturday. She had previously been diagnosed with biliary dyskinesia with and abnormal HIDA scan (ef 30%) that was performed at [facility]. abdominal US had also been completed at [facility] in April and was unremarkable. She was having pain and nausea with even basic foods such as applesauce and water. While in the ED, patient had CBC and CMP that were unremarkable. Calcium was slightly elevated at 10.4. She was given IV antiemetics and fluids and her symptoms improved. Dr. Alberto spoke with patient's surgeon, Dr. Vernon, who actually had an appointment with her the next day. Dr. Vernon recommended admission and consult with GI for EGD to eval for possible gastric causes of her pain since she was having symptoms even with non-fatty foods. Patient was admitted for observation. 06/03/17- Patient states she is doing ok today. Says she has tolerated clear liquids last night prior to being made npo for her scope this morning. She did have some solid food after her scope and says about 20 minutes later began having that same RUQ sharp, cramping pain along with becoming nauseous. She has not vomited and is not having loose stools. Dr. Sepulveda performed EGD this morning and there was no evidence of gastritis, ulcer or other process. surgeon: Dr. Vernon Abnormal Labs: Abnormal Lab Results 06/03/17 06/03/17 Range/Units 06:20 06:20 Hgb 11.3 L (11.6-16.0) gm/dl Hct 34.3 L (35.0-47.0) % Neutrophils % 46.0 L (47-80) % Lymphocytes 47.0 H (16-45) % Albumin 3.8 L (4.0-5.0) g/dL Condition at Discharge: (1) Good Discharge Medications - Discharge Medications Home Medications: Ambulatory Orders Cholecalciferol (Vitamin D3) [Vitamin D3] 50,000 unit PO WEEKLY 05/31/17 [Last Taken 06/01/17] Hydrocodone/Acetaminophen [[place] 7.5-325 Tablet] 1 each PO Q6H PRN #15 tablet [Last Taken 06/01/17] Ondansetron [Zofran Odt] 4 mg PO Q8H PRN #20 tab.rapdis 05/31/17 [Last Taken 11/11] Discharge Plan - Discharge Instructions Activity at Discharge: Resume Usual Activities As Tolerated Diet at Discharge: Other (clear liquids) Additional Instructions: Follow up tomorrow with Dr. Vernon for cholecystectomy Continue clear liquids as tolerating until the time surgery has told you to be NPO (nothing by mouth) Please call with any questions or concerns Return to ED for new or worsening symptoms Quality Measures - Quality Measures Quality Measures: Documentation of Current Medications in Medical Record, Screening for High Blood Pressure and F/U Documented - Current Medications Quality Measure: Measure #130: Documentation of Current Medications Documentation of Current Medications: <Current Medications Documented/Reviewed> [M4058] - Blood Pressure Screening Quality Measure: Screening for High Blood Pressure and Follow-Up Documented Does Patient Have Any of the Following: No Blood Pressure Classification: Normal BP Reading Systolic Measurement: 114 Diastolic Measurement: 72 Screening for High Blood Pressure: < Normal BP, F/U Not Required > [X3494] - Elder Abuse Suspicion Index EASI Reference Information: Yesy MORAN, Aries C, Nury D, Paul Jordan.Development and validation of a tool to assist physicians identification of elder abuse: The Elder Abuse Suspicion Index (EASI ). Journal of Elder Abuse and Neglect, 2008; 20 (3): 276-300.
[2017-06-03] MEDS ORDERED: PROPOFOL 10 MG/ML VIAL IV ONE (15:15)
[2017-06-03] MEDS ORDERED: FENTANYL PF 100MCG/2ML VIAL IV ONE (15:15)
[2017-06-03] MEDS ORDERED: LIDOCAINE 2% MDV (20MG/ML) 20ML VIAL IV ONE (15:15)
--- NOTE | 2017-06-04 12:50 | Medical Records Consult ---
DATE OF CONSULTATION: 06/03/2017 HISTORY OF PRESENT ILLNESS: The patient is a very pleasant 32-year-old female seen in consultation at the request of Dr. Vernon for evaluation of right upper quadrant discomfort and recurring pyrosis. She was admitted yesterday to this hospital for the above complaints. Per Dr. Vernon, she had an ultrasound of the abdomen which was unremarkable. She then had a HIDA scan which revealed a 30% gallbladder ejection fraction but did reproduce some of her epigastric and right upper quadrant discomfort. She has a history of pain in this area for the past 2 months. She states that the pain is rather constant. She is able to sleep through the night, however. She also admits to heartburn for which she takes Protonix twice daily which seems to control the pyrosis to come extent. She has some nausea with nausea and vomiting. She does complain of chronic constipation. Sometimes she claims passing up to 2 weeks between stools. She denies any melena, hematochezia, hematemesis. She denies any previous upper GI tract evaluation via x-ray or endoscopy. She has a past medical history which includes endometriosis and migraine cephalgia. Previous surgeries include appendectomy, hysterectomy, and endometriosis ablation laparoscopically. She denies tobacco consumption. She drinks alcohol infrequently. 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 MEDICATIONS: 1. Protonix. 2. Vitamin D. REVIEW OF SYSTEMS: Noted and reviewed. PHYSICAL EXAMINATION: GENERAL: At this time, she seems alert and oriented and in no acute distress. HEART: Regular. LUNGS: Clear. ABDOMEN: Soft. No rebound, rigidity, or guarding. There is some tenderness with moderate palpation in the right upper quadrant. EXTREMITIES: Free from edema. NEUROMUSCULAR: Seems to be grossly unremarkable. IMPRESSION: 1. Right upper quadrant pain. The cause of this remains unclear. The patient had a gallbladder ejection fraction of 30% but this did reproduce her symptoms. She had a negative abdominal ultrasound. 2. She suffers with chronic gastroesophageal reflux with pyrosis, fairly well controlled with Protonix. PLAN: For further evaluation of her symptom complex, I agree to proceed with upper endoscopy, particularly to rule out acid peptic disease. Further recommendations may be forthcoming. Thank you for allowing me to participate in the care of this patient. CC: JOHNNIE LEE MD, FACP Rolf TENORIO
--- NOTE | 2017-06-04 12:50 | Operative Note ---
Dictated by Dr. Neel Loera for Dr. Sepulveda DATE OF SURGERY: 06/03/2017 PREOPERATIVE DIAGNOSIS: Right upper quadrant abdominal pain. POSTOPERATIVE DIAGNOSIS: Normal EGD. OPERATION: ESOPHAGOGASTRODUODENOSCOPY. ENDOSCOPIST: Farhad Sepulveda DO VIRTUALIZATION ENGINEER: Dr. Neel Loera ANESTHESIA: Anesthesia was performed by the anesthesia department. COMPLICATIONS: None. INDICATIONS FOR PROCEDURE: A 32-year-old female with history of heartburn and endometriosis who presented to the hospital with right upper quadrant abdominal pain that worsens with food. The patient's ultrasound was normal; however, did get abdominal pain with CCK. EGD is performed to rule out any GI abnormalities. PROCEDURE: Procedure was thoroughly explained to the patient including risks, benefits, and alternatives. The patient had opportunity to have questions answered. Patient agreed to procedure and signed written informed consent. The patient was brought to the endoscopy suite and was placed in the left lateral decubitus position. Bite block was placed. Anesthesia was begun and procedure begun with introduction of a well-lubricated Olympus [id number] gastroscope to posterior oropharynx. It was advanced into esophagus under direct visualization. Esophagus appeared normal without any abnormalities. GE junction appeared normal as well. Scope was advanced into stomach which appeared unremarkable. Scope was advanced through the pylorus into the duodenal bulb, through the sweep into the second and third portions of duodenum, which appeared nl. Scope was placed back into the antrum, was retroflexed to evaluate cardia and fundus, which appeared unremarkable. Scope was placed back into neutral position and air was suctioned and scope was withdrawn completely. Patient tolerated the procedure well without any complications. RECOMMENDATION: 1. Okay to start diet. 2. Continue antireflux medication. 3. Need constipation regimen for chronic constipation. 4. Surgical management per Dr. Vernon. May need cholecystectomy. As always, thank you for allowing me to participate in the care of your patient. CC: Dr. Saulo TENORIO
== END 2017-06-03 15:16 | disposition home or self-care (01) ==
LOC: ER 13:40 → MEDSURG 15:34
PROVIDERS: ADMIT Internal Medicine; ATTEND Internal Medicine
DX: R10.11 Right upper quadrant pain (principal); K80.50 Calculus of bile duct without cholangitis or cholecystitis without obstruction; K59.09 Other constipation
CPT/HCPCS: 43235; 00731; 99285 ×2; 96374; 96375; 96361; 83690 ×2; 85025; 83970; 80053 ×2; 81003; 81025; 85027; G0378 ×2; J2405; J3010; J1170 ×2; 99220; C9113; J7030

== ENCOUNTER 2017-10-24 19:41 | Emergency (ER) | payer OTHER ==
--- NOTE | 2017-10-24 20:09 | Emergency Department Record ---
History of Present Illness - General Chief complaint: ENT Stated complaint: SOMETHING STUCK IN HER THROAT Time Seen by Provider: 10/24/17 19:59 Source: Patient Mode of Arrival: Ambulatory Limitations: No limitations - History of Present Illness Initial comments: 32 yo female presents with a foreign body sensation in her throat since eating a store bought no bake cookie. No choking, voice changes but it hurt to swallow. She has pain with any swallowing. She thought she saw a clear FB low on the right. MD complaint: Foreign body Onset/Timin -: Days(s) Severity: Moderate Severity scale (1-10): 8 Quality: Sharp Consistency: Constant, Getting worse Improves with: None Worsens with: None Context-Epistaxis: Other Context- Ear: Other Associated Symptoms: Other - Related Data Home Medications Medication Instructions Recorded Confirmed Last Taken Cholecalciferol (Vitamin D3) 5,000 unit PO DAILY 10/24/17 10/24/17 Unknown [Vitamin D3] Allergies Allergy/AdvReac Type Severity Reaction Status Date / Time ciprofloxacin [From Cipro] Allergy ANAPHYLAXIS Verified 06/02/17 13:48 ciprofloxacin HCl Allergy ANAPHYLAXIS Verified 06/02/17 13:48 [From Cipro] estradiol [From Estrace] Allergy ANAPHYLAXIS Verified 06/02/17 13:48 estrogens, conjugated Allergy ANAPHYLAXIS Verified 06/02/17 13:48 [From Premarin] ketorolac [From Toradol] Allergy hallucinati Verified 06/02/17 13:48 ons Sulfa (Sulfonamide Allergy ANAPHYLAXIS Verified 06/02/17 13:48 Antibiotics) sulfamethoxazole Allergy ANAPHYLAXIS Verified 06/02/17 13:48 [From Bactrim] trimethoprim [From Bactrim] Allergy ANAPHYLAXIS Verified 06/02/17 13:48 Travel Screening - Travel/Exposure Within Last 30 Days Have you traveled within the last 30 days?: No Review of Systems Constitutional: Denies: Chills, Fever Eyes: Denies: Eye discharge, Eye pain, Photophobia, Vision change ENT: Reports: Congestion, Throat pain. Denies: Dental pain, Ear pain, Epistaxis Respiratory: Denies: Cough, Dyspnea, Hemoptysis, Wheezes Cardiovascular: Denies: Chest pain, Palpitations, Syncope Endocrine: Denies: Fatigue Gastrointestinal: Denies: Nausea, Vomiting Genitourinary: Denies: Dysuria, Urgency Musculoskeletal: Denies: Arthralgia, Back pain Skin: Denies: Bruising, Change in color, Rash Neurological: Denies: Headache, Numbness, Weakness Psychiatric: Denies: Anxiety Hematological/Lymphatic: Denies: Easy bleeding, Easy bruising Past Medical History - SOCIAL HISTORY Smoking Status: Never smoker Alcohol Use: None Drug Use: None - BOTTOM CAGER History BOTTOM CAGER history: Reports: other (Hx of FELIPE.) - RESPIRATORY Hx Respiratory Disorders: Yes Hx Bronchitis: Yes Hx Pneumonia: Yes - CARDIOVASCULAR Hx Cardio Disorders: No Hx Heart Attack: Yes (09/2015) Comment:: stress test - NEURO Hx Neuro Disorders: Yes Hx Headaches: Yes - GI Hx GI Disorders: No Hx Reflux: Yes - Hx Genitourinary Disorders: Yes Hx Bladder Problem: Yes Hx UTI: Yes Comment:: endometriosis - ENDOCRINE Hx Endocrine Disorders: No Hx Diabetes: No Hx Thyroid Disease: No - MUSCULOSKELETAL Hx Musculoskeletal Disorders: No - PSYCH Hx Psych Problems: Yes Hx Anxiety: Yes Hx Depression: Yes - HEMATOLOGY/ONCOLOGY Hx Hematology/Oncology Disorders: No Family Medical History Any Significant Family History?: Yes Hx Cancer: Brother/Sister *Cancer Comment: Aunt cervical Hx Depression: Brother/Sister Hx Diabetes: Grandparents Hx Heart Disease: Mother, Grandparents Physical Exam - General General Appearance: Alert, Oriented x3, Cooperative, No acute distress, Other ( Clear voice, normal appearance, no distress) Limitations: No limitations - Head Head exam: Atraumatic, Normal inspection - Eye Eye exam: Normal appearance. negative: Conjunctival injection, Scleral icterus - ENT ENT exam: Normal exam Ear exam: Normal external inspection Nasal Exam: Normal inspection Mouth exam: Normal external inspection Teeth exam: Normal inspection Throat exam: Normal inspection, Other (No foreign body.). negative: Tonsillar erythema, Tonsillomegaly, Tonsillar exudate, R peritonsillar mass, L peritonsillar mass - Neck Neck exam: Normal inspection - Respiratory Respiratory exam: Normal lung sounds bilaterally. negative: Respiratory distress - Cardiovascular Cardiovascular Exam: Regular rate, Normal rhythm, Normal heart sounds - Back Back exam: Reports: Full ROM - Neurological Neurological exam: Alert, Oriented X3 - Psychiatric Psychiatric exam: Normal affect, Normal mood - Skin Skin exam: Dry, Intact, Normal color, Warm Course Vital Signs 10/24/17 19:46 Temperature 98.6 F Pulse Rate [ 90 Pulse Ox Probe] Respiratory 16 Rate Blood Pressure 128/100 [Left Arm] Pulse Ox 99 - Reevaluation(s) Reevaluation #1: The vitals and examination are normal I do not see an obvious FB She points with her finger to an area at inferior to the right tonsil. No swelling, bruising, or bleeding. I gently swept the area with a tongue blade and no FB felt I recommended CT scan for FB. Clear voice, swallowed water without limitation 10/24/17 20:43 10/24/17 21:[address] was reviewed 2mm metallic FB noted in the right tonsil. No edema, bleeding or swelling. 10/24/17 21:02 One Call at [facility] for consultation with ENT. 10/24/17 21:07 Dr Pritchard of [facility] called back. We discussed the examination No immediate surgical emergency. The patient can been seen in the office tomorrow morning or be monitored at [facility] overnight to be seen tomorrow Her examination is normal. No swelling. Normal voice. No signs of swelling She elected DC home to be seen in the morning. She is stable with a completely normal examination No signs of airway issues, swelling, or signs that this will occur given the normal examination several hours after onset. No swelling on CT as well. 10/24/17 21:55 Disposition Disposition: Discharge Clinical Impression: Foreign body of tonsil Disposition: Home, Self-Care Condition: (1) Good Instructions: Foreign Body in Pharynx (ED) Additional Instructions: Call Dr Scott in the morning to be seen tomorrow morning Been seen immediately if worse Liquids only until follow up Take the copy of the CT with your tomorrow. Referrals: ELODIA SANTANA [MEDICAL DOCTOR] - Forms: Patient Portal Access Time of Disposition: 21:17 Quality - Quality Measures Quality Measures: N/A - Blood Pressure Screening Does Patient Have Any of the Following: No Blood Pressure Classification: Hypertensive Reading Systolic Measurement: 128 Diastolic Measurement: 100 Screening for High Blood Pressure: < Pre-Hypertensive BP, F/U Documented > [ G8950] Pre-Hypertensive Follow-up Interventions: Referral to alternative/primary care provider.
--- NOTE | 2017-10-25 08:12 | CT SCAN REPORT ---
EXAM: CT OF THE NECK WITHOUT CONTRAST HISTORY: FOREIGN BODY IN THE RIGHT TONSIL. TECHNIQUE: Sequential axial images were obtained through the soft tissues of the neck without administration of contrast material. FINDINGS: There is a 2 mm radiopaque density in the right tonsil. The epiglottis appears normal. The piriform sinus appears normal. The true and false cords and trachea appear normal. The thyroid gland appears normal. The osseous structures appear normal. The submandibular and parotid glands appear normal. The paranasal sinuses are well aerated. IMPRESSION: 2 MM RADIOPAQUE FOREIGN BODY IN THE RIGHT TONSIL. THE REMAINDER OF THE EXAMINATION IS UNREMARKABLE. JOB NUMBER: [id number] MTDD
== END 2017-10-24 21:29 | disposition home or self-care (01) ==
LOC: ER 19:41
DX: T17.298A Other foreign object in pharynx causing other injury, initial encounter (principal); R13.10 Dysphagia, unspecified; I25.2 Old myocardial infarction
CPT/HCPCS: 70490; 99283; 99284

== ENCOUNTER 2018-05-05 15:35 | Emergency (ER) | payer OTHER ==
[2018-05-05] MEDS ORDERED: 0.9 % SODIUM CHLORIDE 1,000 ML BAG IV ONE (16:15)
[2018-05-05] MEDS ORDERED: METHYLPREDNISOLONE PF 125MG/VIAL IVP ONE (16:17)
[2018-05-05] MEDS ORDERED: DIPHENHYDRAMINE HCL 50 MG/ML VIAL IVP ONE (16:17)
[2018-05-05] MEDS ORDERED: FAMOTIDINE IV 20 MG/2 ML VIAL IVP ONE (16:18)
[2018-05-05] MEDS ORDERED: ACETAMINOPHEN 1,000 MG/100 ML BTL IVPB ONE (16:18)
--- NOTE | 2018-05-05 16:24 | Emergency Department Record ---
History of Present Illness - General Chief Complaint: Shortness of breath Stated Complaint: ROSSANA,ABDOMINAL PAIN Time Seen by Provider: 05/05/18 16:01 Source: Patient Mode of Arrival: Ambulatory Limitations: No limitations - History of Present Illness Initial Comments: Pt to ED with two issues. Pt relates one week of intermittent facial and eyelid swelling with red warm skin to the face and swelling in the throat and associated ROSSANA. Unkonwn cause. Hx of multiple allergies and reactions to medicines. Improved with use of Claritin and Benadryl. No present now. Also notes pain in the lower abdomen that comes and goes. Hx of endometroisis with FELIPE with BSO, appy, and GB surgery. Continues to have symptoms. Pain is sharp and intermittent. right > left lower abdomen. No fever, chills, vag discharge , no urinary pain, or symptoms. Hs of Interstitial Cystitis which feels "different from this". No diarrhea. Onset/Timin -: Days(s) Consistency: Intermittent Improves With: Nothing Worsens With: Nothing Associated Symptoms: Abdominal pain Treatments Prior to Arrival: None - Related Data Previous Rx's Medication Instructions Recorded Prednisone [Prednisone 20Mg] 40 mg PO DAILY 4 Days #8 tab 05/05/18 Allergies Allergy/AdvReac Type Severity Reaction Status Date / Time ciprofloxacin [From Cipro] Allergy ANAPHYLAXIS Verified 06/02/17 13:48 ciprofloxacin HCl Allergy ANAPHYLAXIS Verified 06/02/17 13:48 [From Cipro] estradiol [From Estrace] Allergy ANAPHYLAXIS Verified 06/02/17 13:48 estrogens, conjugated Allergy ANAPHYLAXIS Verified 06/02/17 13:48 [From Premarin] ketorolac [From Toradol] Allergy hallucinati Verified 06/02/17 13:48 ons Sulfa (Sulfonamide Allergy ANAPHYLAXIS Verified 06/02/17 13:48 Antibiotics) sulfamethoxazole Allergy ANAPHYLAXIS Verified 06/02/17 13:48 [From Bactrim] trimethoprim [From Bactrim] Allergy ANAPHYLAXIS Verified 06/02/17 13:48 Travel Screening - Travel/Exposure Within Last 30 Days Have you traveled within the last 30 days?: Yes Location Detail:: [place] - Travel/Exposure Within Last Year Have you traveled outside the [place] in the last year?: No - Travel Symptoms Symptom Screening: None Review of Systems Constitutional: Denies: Chills, Fever, Weakness Eyes: Denies: Eye discharge, Photophobia ENT: Denies: Congestion Respiratory: Denies: Cough, Hemoptysis Cardiovascular: Denies: Arrhythmia, Chest pain Endocrine: Denies: Fatigue, Polydipsia, Polyuria Gastrointestinal: Reports: As per HPI. Denies: Constipation Genitourinary: Denies: Abnormal menses, Discharge, Dysuria, Hematuria Musculoskeletal: Denies: Arthralgia, Back pain Skin: Denies: Bruising Neurological: Denies: Abnormal gait, Headache, Seizure Psychiatric: Denies: Suicidal thoughts Hematological/Lymphatic: Denies: Anemia, Easy bleeding Past Medical History - SOCIAL HISTORY Smoking Status: Never smoker - [employer] History [employer] history: Reports: other (Hx of FELIPE.) - RESPIRATORY Hx Respiratory Disorders: Yes Hx Bronchitis: Yes Hx Pneumonia: Yes - CARDIOVASCULAR Hx Cardio Disorders: No Hx Heart Attack: Yes (09/2015) Comment:: stress test - NEURO Hx Neuro Disorders: Yes Hx Headaches: Yes - GI Hx GI Disorders: No Hx Reflux: Yes - Hx Genitourinary Disorders: Yes Hx Bladder Problem: Yes Hx UTI: Yes Comment:: endometriosis - ENDOCRINE Hx Endocrine Disorders: No Hx Diabetes: No Hx Thyroid Disease: No - MUSCULOSKELETAL Hx Musculoskeletal Disorders: No - PSYCH Hx Psych Problems: Yes Hx Anxiety: Yes Hx Depression: Yes - HEMATOLOGY/ONCOLOGY Hx Hematology/Oncology Disorders: No Family Medical History Any Significant Family History?: Yes Hx Cancer: Brother/Sister *Cancer Comment: Aunt cervical Hx Depression: Brother/Sister Hx Diabetes: Grandparents Hx Heart Disease: Mother, Grandparents Physical Exam - General General Appearance: Alert, Oriented x3, Cooperative, No acute distress - Head Head exam: Atraumatic - Eye Eye exam: Normal appearance, PERRL, EOMI - ENT ENT exam: Normal exam, Mucous membranes moist, Normal external ear exam, Normal orophraynx, TM's normal bilaterally Ear exam: Normal external inspection. negative: External canal tenderness Nasal Exam: Normal inspection. negative: Discharge, Sinus tenderness Mouth exam: Normal external inspection, Tongue normal Teeth exam: Normal inspection. negative: Dental caries Throat exam: Normal inspection. negative: Tonsillar erythema, Tonsillar exudate - Cardiovascular Cardiovascular Exam: Regular rate, Normal heart sounds. negative: Normal rhythm , Gallop, Tachycardia Peripheral Pulses: 1+: Radial (R), Radial (L) - GI/Abdominal GI/Abdominal exam: Soft, Normal bowel sounds, Tenderness (Right mid to lower abd without rebound. No mass ). negative: Guarding - Rectal Rectal exam: Deferred - exam: Normal bimanual exam. negative: Adnexal mass (L), Adnexal mass (R), Adnexal tenderness (L), Adnexal tenderness (R) - Extremities Extremities exam: Normal inspection - Back Back exam: Reports: Normal inspection - Neurological Neurological exam: Alert, Normal gait, Oriented X3 - Psychiatric Psychiatric exam: Normal affect, Normal mood - Skin Skin exam: Cyanosis Course Vital Signs 05/05/18 15:55 Temperature 98.0 F Pulse Rate 79 Respiratory 20 Rate Blood Pressure 124/86 Pulse Ox 100 - Reevaluation(s) Reevaluation #1: 05/05/18 18:02 XRay with increased stool. Discussed with pt. On going issue. Take Miralax daily. We discussed one toiem Citrate of Mag. She agrees. Her AP at this time is gone with the meds in ED. Labs reviewed. Facial "swelling" resolved. Will treat with home Prednisone and Claritin. Returning if worse. Medical Decision Making - Lab Data Result diagrams: 05/05/18 16:30 05/05/18 16:30 Disposition Disposition: Discharge Clinical Impression: Constipation, Abdominal pain, Allergic reaction Disposition: Home, Self-Care Condition: (2) Stable Instructions: Abdominal Pain (ED), Constipation (ED), General Allergic Reaction (ED) Additional Instructions: Continue your Claritin and add the Prednisone daily. At home drink the Citrate of Mag. Then a few glasses of water tonight. If not 100% improved in the AM see your doctor or return to the ED. Prescriptions: Prednisone [Prednisone 20Mg] 40 mg PO DAILY 4 Days #8 tab Forms: Patient Portal Access Quality - Quality Measures Quality Measures: N/A - Blood Pressure Screening Does Patient Have Any of the Following: No Blood Pressure Classification: Pre-Hypertensive BP Reading Systolic Measurement: 124 Diastolic Measurement: 86 Screening for High Blood Pressure: < Pre-Hypertensive BP, F/U Documented > [ G8950] Pre-Hypertensive Follow-up Interventions: Follow-up with rescreen every year.
[2018-05-05 16:47] LABS: BASO % 0.2 % (0-6); EOS % 0.8 % (0-6); GRAN % 59.2 % (47-80); HEMATOCRIT 39.7 % (35.0-47.0); HEMOGLOBIN 13.1 gm/dl (11.6-16.0); LYMPH % 32.8 % (16-45); MEAN CORPUSCULAR HEMOGLOBIN 29.7 pg (27-33); PLATELET COUNT 256 K/uL (130-400); RED BLOOD COUNT 4.41 M/uL (3.80-5.40); RED CELL DISTRIBUTION WIDTH 12.3 % (11.5-14.5); WHITE BLOOD COUNT W/O DIFF 6.6 K/uL (4.2-12.2)
[2018-05-05 16:49] LABS: URINE APPEARANCE CLEAR; URINE BILIRUBIN NEGATIVE (NEGATIVE); URINE BLOOD NEGATIVE (NEGATIVE); URINE COLOR YELLOW; URINE GLUCOSE (UA) NEGATIVE (NEGATIVE); URINE KETONE NEGATIVE (NEGATIVE); URINE LEUKOCYTE ESTERASE NEGATIVE (NEGATIVE); URINE NITRITE NEGATIVE (NEGATIVE); URINE PROTEIN NEGATIVE (NEGATIVE); URINE UROBILINOGEN 0.2 E.U./dL (0.20 - 1.00)
[2018-05-05 17:00] LABS: BLOOD UREA NITROGEN 10 mg/dL (6-20); CREATININE 0.6 mg/dL (0.5-0.9); EST GLOMERULAR FILTRATION RATE > 60 mL/min
[2018-05-05 17:02] LABS: GLUCOSE,RANDOM 86 mg/dL (74-109)
[2018-05-05] MEDS ORDERED: MAGNESIUM CITRATE 296 ML BTL PO ONE (18:02)
--- NOTE | 2018-05-08 07:40 | RADIOLOGY REPORT ---
EXAM: AP ABDOMEN HISTORY: ABDOMINAL PAIN FOR A FEW DAYS. TECHNIQUE: A single AP view of the abdomen was obtained. Comparison: AP abdomen 07/08/12. FINDINGS: There are probably a couple surgical clips overlying the right side of the upper sacrum. Somewhat additional metallic densities that were probably GI transit markers previously seen overlying the pelvis are no longer apparent. Moderate stool scattered throughout the colon. Nonspecific bowel gas pattern. Tilting of the spine to the left which may simply be due to positioning or spasm. IMPRESSION: 1. PROMINENT STOOL IN THE COLON. 2. NONSPECIFIC BOWEL GAS PATTERN. JOB NUMBER: [id number] [facility]
== END 2018-05-05 18:36 | disposition home or self-care (01) ==
LOC: ER 15:35
DX: T78.40XA Allergy, unspecified, initial encounter (principal); R22.0 Localized swelling, mass and lump, head; K59.00 Constipation, unspecified; R10.31 Right lower quadrant pain; R10.32 Left lower quadrant pain; R06.00 Dyspnea, unspecified; I25.2 Old myocardial infarction
CPT/HCPCS: 99284 ×2; 96365; 96375; 85025; 80048; 81003; 74018; J3490; J1200; J2930; J7030

== ENCOUNTER 2019-07-29 09:37 | Emergency (ER) | payer SELFPAY ==
[2019-07-29] MEDS ORDERED: DIPHENHYDRAMINE HCL 50 MG/ML VIAL IVP ONE (09:53)
--- NOTE | 2019-07-29 09:59 | Emergency Department Record ---
History of Present Illness - General Chief complaint: Allergic Reaction Stated complaint: ALLERGIC REACTION Time Seen by Provider: 07/29/19 09:47 Source: Patient, RN notes reviewed Mode of Arrival: Ambulatory - History of Present Illness Initial Comments: Pateint wake up with luci on her abd and started on the left flank area and spread to arms and legs and it is a sand paper type rash and red dots and not hives seen and throat is clear and no dyspnea and she had a couple of seconds of blurred vision and lightheaded when she was working at her computer today. No meds taken today and no headaches no chest pain and she can not think of any triggers. NO URI symptoms no abd pain and now dysuria or diarrhea and not around anyone who is sick. Flu is going throught the community.PSH hysterectomy Treatment Prior to Arrival: None Previous Allergy History: None - Related Data Home Medications Medication Instructions Recorded Confirmed Last Taken Esomeprazole Magnesium [Nexium 20 mg PO DAILY 07/29/19 07/29/19 07/28/19 24Hr] Loratadine/Pseudoephedrine 1 tab PO DAILY 07/29/19 07/29/19 07/28/19 [Claritin-D 24 Hour Tablet] Multivitamin [Multiple Vitamins] 1 each PO DAILY 07/29/19 07/29/19 07/28/19 Previous Rx's Medication Instructions Recorded Diphenhydramine HCl [Benadryl] 25 mg PO Q6H #20 cap 07/29/19 Prednisone [Prednisone 10Mg] 10 mg PO ASDIR #30 tab 07/29/19 Allergies Allergy/AdvReac Type Severity Reaction Status Date / Time ciprofloxacin [From Cipro] Allergy ANAPHYLAXIS Verified 06/02/17 13:48 ciprofloxacin HCl Allergy ANAPHYLAXIS Verified 06/02/17 13:48 [From Cipro] estradiol [From Estrace] Allergy ANAPHYLAXIS Verified 06/02/17 13:48 estrogens, conjugated Allergy ANAPHYLAXIS Verified 06/02/17 13:48 [From Premarin] ketorolac [From Toradol] Allergy hallucinati Verified 06/02/17 13:48 ons Sulfa (Sulfonamide Allergy ANAPHYLAXIS Verified 06/02/17 13:48 Antibiotics) sulfamethoxazole Allergy ANAPHYLAXIS Verified 06/02/17 13:48 [From Bactrim] trimethoprim [From Bactrim] Allergy ANAPHYLAXIS Verified 06/02/17 13:48 Travel/Exposure Screening - Travel/Exposure Within Last 30 Days Have you traveled within the last 30 days?: No - Travel/Exposure Within Last Year Have you traveled outside the [place] in the last year?: No - Additonal Travel/Exposure Details Have you been exposed to anyone with a communicable illness?: No - Travel Symptoms Symptom Screening: Rash Review of Systems Reviewed: No additional complaints except as noted below Constitutional: Reports: As per HPI. Denies: Chills, Fever, Malaise, Night sweats, Weakness, Weight change Eyes: Reports: As per HPI. Denies: Eye discharge, Eye pain, Photophobia, Vision change ENT: Reports: As per HPI. Denies: Congestion, Dental pain, Ear pain, Epistaxis, Hearing loss, Throat pain Respiratory: Reports: As per HPI. Denies: Cough, Dyspnea, Hemoptysis, Stridor, Wheezes Cardiovascular: Reports: As per HPI. Denies: Arrhythmia, Chest pain, Dyspnea on exertion, Edema, Murmurs, Orthopnea, Palpitations, Paroxysmal nocturnal dyspnea, Rheumatic Fever, Syncope Endocrine: Reports: As per HPI. Denies: Fatigue, Heat or cold intolerance, Polydipsia, Polyuria Gastrointestinal: Reports: As per HPI. Denies: Abdominal pain, Constipation, Diarrhea, Hematemesis, Hematochezia, Melena, Nausea, Vomiting Genitourinary: Reports: As per HPI. Denies: Abnormal menses, Discharge, Dyspareunia, Dysuria, Frequency, Hematuria, Incontinence, Retention, Urgency Musculoskeletal: Reports: As per HPI. Denies: Arthralgia, Back pain, Gout, Joint swelling, Myalgia, Neck pain Skin: Reports: As per HPI, Change in color, Pruritus, Rash. Denies: Bruising, Change in hair/nails, Lesions Neurological: Reports: As per HPI. Denies: Abnormal gait, Confusion, Headache, Numbness, Paresthesias, Seizure, Tingling, Tremors, Vertigo, Weakness Psychiatric: Reports: As per HPI. Denies: Anxiety, Auditory hallucinations, Depression, Homicidal thoughts, Suicidal thoughts, Visual hallucinations Hematological/Lymphatic: Reports: As per HPI. Denies: Anemia, Blood Clots, Easy bleeding, Easy bruising, Swollen glands Past Medical History - SOCIAL HISTORY Smoking Status: Never smoker Alcohol Use: Occasional Drug Use: None - [employer] History [employer] history: Reports: other (Hx of FELIPE.) - RESPIRATORY Hx Respiratory Disorders: Yes Hx Bronchitis: Yes Hx Pneumonia: Yes - CARDIOVASCULAR Hx Cardio Disorders: No Hx Heart Attack: Yes (09/2015) Comment:: stress test - NEURO Hx Neuro Disorders: Yes Hx Headaches: Yes - GI Hx GI Disorders: No Hx Reflux: Yes - Hx Genitourinary Disorders: Yes Hx Bladder Problem: Yes Hx UTI: Yes Comment:: endometriosis - ENDOCRINE Hx Endocrine Disorders: No Hx Diabetes: No Hx Thyroid Disease: No - MUSCULOSKELETAL Hx Musculoskeletal Disorders: No - PSYCH Hx Psych Problems: Yes Hx Anxiety: Yes Hx Depression: Yes - HEMATOLOGY/ONCOLOGY Hx Hematology/Oncology Disorders: No Family Medical History Any Significant Family History?: No Hx Cancer: Brother/Sister *Cancer Comment: Aunt cervical Hx Depression: Brother/Sister Hx Diabetes: Grandparents Hx Heart Disease: Mother, Grandparents Physical Exam - General General Appearance: Alert, Oriented x3, Cooperative, No acute distress - Head Head exam: Normal inspection - Eye Eye exam: Normal appearance, PERRL Pupils: Normal accommodation - ENT ENT exam: Normal exam, Mucous membranes moist, Normal external ear exam, Normal orophraynx, TM's normal bilaterally Ear exam: Normal external inspection. negative: External canal tenderness Nasal Exam: Normal inspection. negative: Discharge, Sinus tenderness Mouth exam: Normal external inspection, Tongue normal Teeth exam: Normal inspection. negative: Dental caries Throat exam: Normal inspection. negative: Tonsillar erythema, Tonsillar exudate - Neck Neck exam: Normal inspection, Full ROM. negative: Tenderness - Respiratory Respiratory exam: Normal lung sounds bilaterally. negative: Respiratory distress - Cardiovascular Cardiovascular Exam: Regular rate, Normal rhythm, Normal heart sounds - GI/Abdominal GI/Abdominal exam: Soft, Normal bowel sounds. negative: Tenderness - Rectal Rectal exam: Deferred - exam: Deferred - Extremities Extremities exam: Normal inspection, Full ROM, Normal capillary refill. negative: Tenderness - Back Back exam: Reports: Normal inspection, Full ROM. Denies: Muscle spasm, Rash noted, Tenderness - Neurological Neurological exam: Alert, Normal gait, Oriented X3, Reflexes normal - Psychiatric Psychiatric exam: Normal affect, Normal mood - Skin Skin exam: Dry, Intact, Rash, Other (doen't walker, no herald patch seen but where it started more reash there.) Course Vital Signs 07/29/19 09:39 Temperature 98.6 F Pulse Rate 80 Respiratory 16 Rate Blood Pressure 120/86 Pulse Ox 98 - Reevaluation(s) Reevaluation #1: 07/29/19 12:46 doing better Reevaluation #2: rash is gone and feeling better 07/29/19 12:53 Medical Decision Making - Lab Data Result diagrams: 07/29/19 10:00 07/29/19 10:00 Disposition Clinical Impression: Rash, Acute urticaria Disposition: Home, Self-Care Condition: (1) Good Instructions: Urticaria (ED), Viral Exanthem (ED) Additional Instructions: follow up with family DR in 2 days Prescriptions: Diphenhydramine HCl [Benadryl] 25 mg PO Q6H #20 cap Prednisone [Prednisone 10Mg] 10 mg PO ASDIR #30 tab Forms: Patient Portal Access Time of Disposition: 12:55 Quality - Quality Measures Quality Measures: N/A - Blood Pressure Screening Does Patient Have Any of the Following: No Blood Pressure Classification: Pre-Hypertensive BP Reading Systolic Measurement: 120 Diastolic Measurement: 86 Screening for High Blood Pressure: < Pre-Hypertensive BP, F/U Documented > [G8950] Pre-Hypertensive Follow-up Interventions: Referral to alternative/primary care provider.
[2019-07-29] MEDS ORDERED: METHYLPREDNISOLONE PF 125MG/VIAL IVP SCH (10:00)
[2019-07-29 10:17] LABS: ABSOLUTE NEUTROPHIL COUNT 2.23; BASO % 0.4 % (0-6); EOS % 1.4 % (0-6); GRAN % 45.9 % (47-80); HEMATOCRIT 39.9 % (35.0-47.0); HEMOGLOBIN 13.1 gm/dl (11.6-16.0); LYMPH % 43.2 % (16-45); MEAN CELL VOLUME 90.3 fl (81-97); MEAN CORPUSCULAR HEMOGLOBIN 29.6 pg (27-33); MEAN CORPUSCULAR HGB CONC 32.8 g/dl (32-36); MEAN PLATELET VOLUME 9.5 fl (7.4-10.4); MONO % 9.1 % (0-9); PLATELET COUNT 281 K/uL (130-400); RED BLOOD COUNT 4.42 M/uL (3.80-5.40); RED CELL DISTRIBUTION WIDTH 12.5 % (11.5-14.5); WHITE BLOOD COUNT W/O DIFF 4.9 K/uL (4.2-12.2)
[2019-07-29 10:28] LABS: BLOOD UREA NITROGEN 11 mg/dL (6-20); CREATININE 0.6 mg/dL (0.5-0.9); EST GLOMERULAR FILTRATION RATE > 60 mL/min
[2019-07-29 10:31] LABS: GLUCOSE,RANDOM 98 mg/dL (74-109)
[2019-07-29 10:34] LABS: INFLUENZA A NEGATIVE (NEGATIVE); INFLUENZA B NEGATIVE (NEGATIVE)
== END 2019-07-29 13:06 | disposition home or self-care (01) ==
LOC: ER 09:37
DX: L50.8 Other urticaria (principal); H53.8 Other visual disturbances; R42 Dizziness and giddiness; I25.2 Old myocardial infarction
CPT/HCPCS: 99284 ×2; 96374; 96375; 85025; 80048; 87880; 87400; J1200; J2930